=== PATIENT | female | born 1960 | race Caucasian/White ===

== ENCOUNTER 2017-04-22 15:40 | Emergency (ER) | payer BC ==
[2017-04-22] MEDS ORDERED: Ketorolac 30 MG/ML SDV IVPUSH ONE (15:57)
[2017-04-22 16:04] VITALS: BP 108/73
[2017-04-22 16:51] LABS: CHLORIDE,CL 109 mmol/L (98-107); SODIUM,NA 149 mmol/L (136-145)
--- NOTE | 2017-04-23 08:02 | ER ---
Date of Service: 04/22/2017 SUBJECTIVE: Nay presents to the emergency room with complaints of low back pain. The patient has a long-standing history of low back pain. Apparently, her cousin came to visit her and was concerned that the amount of discomfort the patient was experiencing and subsequently called 911. EMS did transport the patient here to the ER. They did give her 1 mg of Dilaudid IV for her discomfort. The patient states that she has not been consuming alcohol but does smell strongly of alcohol on arrival to the ER. She states that she has not experienced any recent trauma and states that she has chronic back pain. PAST MEDICAL HISTORY: 1. Hypothyroidism. 2. Alcoholism, the patient states she is in remission; however, she does appear to be acutely intoxicated. 3. Dyslipidemia. 4. Chronic low back pain. MEDICATIONS: 1. Levothyroxine 125 mcg daily. 2. Klonopin 2 mg p.o. t.i.d. p.r.n. 3. Lipitor 80 mg p.o. daily. 4. Multivitamin 1 daily. ALLERGIES: Prozac. REVIEW OF SYSTEMS: Denies any fever, chills, saddle anesthesia, numbness or tingling in her extremities or urinary or fecal incontinence or retention. PHYSICAL EXAMINATION: General: This is a 56-year-old female patient, in no acute distress. Vital Signs: Blood pressure is 108/73, heart rate is 87, temperature is 37.1, and respiratory rate 16. Skin: Warm, pink, and dry. HEENT. Head is normocephalic and atraumatic. Lungs: Clear to auscultation. Heart: Regular rate and rhythm. Abdomen: Soft, nontender. There is no hepatosplenomegaly or masses noted. Back: She does have some severe point tenderness and increased discomfort with manipulation of the lumbar spine. No obvious step-offs or deformity noted. Neurovascular: Circulation, sensation, and motor function all within normal limits in the distal portion of her lower extremities. LABORATORY DATA: WBCs 8.7, hemoglobin is 15.0, and platelets are 276. Chemistry sodium is 149, potassium is 3.5, chloride is 109, bicarb is 31, BUN is 11, and creatinine 0.7. Creatinine clearance is 85.7. GFR is greater than 60. Glucose is 95, calcium is 8.6, corrected calcium is 8.84. Total bilirubin is 0.4, AST is 20, ALT is 26, and alkaline phosphatase is 99. CRP is 0.4. Blood alcohol elevated at 345. Lumbar spine series was obtained. There was no evidence of any obvious step-offs or deformity. There is no evidence of any acute pathology. EMERGENCY ROOM COURSE: The patient was given Toradol 30 mg IV, did report minimal improvement in her discomfort. She remained stable in my care in the emergency room. ASSESSMENT: Acute on chronic low back pain. PLAN: The patient will be discharged. They did not give her any opiate pain medication as she is highly intoxicated. She is going to go home with her cousin at this time. I advised her to follow up in the clinic for recheck in the next 7 to 10 days. It looks as though she has not had an MRI and has not participated in physical therapy for some time. All questions were answered. MWK: 04/23/2017 04:57:35 MODL: 04/23/2017 05:41:48 /[id number]
== END 2017-04-22 17:20 | disposition home or self-care (01) ==
LOC: VM.ED 15:40
DX: M54.5 Low back pain (principal); G89.29 Other chronic pain; E03.9 Hypothyroidism, unspecified; E78.5 Hyperlipidemia, unspecified; Z79.899 Other long term (current) drug therapy; Z88.8 Allergy status to other drugs, medicaments and biological substances
CPT/HCPCS: 36415; 72100; 80053; 85025; 86140; 96374; 99284; G0480; J1885

== ENCOUNTER 2019-01-20 06:13 | Day surgery (SDC) | payer BC ==
[2019-01-20] MEDS: Lactated Ringers 1,000 ML IV SCH (06:31)
[2019-01-20] MEDS ORDERED: Propofol 200 MG/20 ML SDV ONE (07:50)
[2019-01-20] MEDS ORDERED: Midazolam 1 MG/ML 2 ML SDV ONE (07:50)
[2019-01-20 08:44] VITALS: BP 112/78
--- NOTE | 2019-01-20 09:25 | OR ---
PREOPERATIVE DIAGNOSES: 1. Family history of colon cancer - parent. 2. Chronic diarrhea with history of collagenous colitis. POSTOPERATIVE DIAGNOSIS: Normal colonoscopic exam. PROCEDURE PROPOSED: Total flexible colonoscopy with multiple random biopsies. PROCEDURE DONE: Total flexible colonoscopy with multiple random biopsies. INDICATION: This is a 58-year-old female, who comes in for a 5-year colonic surveillance due to family history of colon cancer. She also has a history of collagenous colitis with some chronic diarrhea. It is felt that we likely would do some further followup random biopsies. TECHNIQUE: The patient was brought to the endoscopy suite, placed in left lateral decubitus position. She was sedated per LIVESTOCK RANCH HAND with propofol. The flexible video colonoscope was then passed transanally and under visualization advanced to the cecum. Examination revealed normal ascending, transverse, descending, sigmoid, and rectal colon. There was no evidence of any colitis, diverticulosis, polyps, or any other abnormality. Multiple random biopsies were taken throughout the left colon and submitted for pathologic examination totaling about 8 biopsies. She tolerated the procedure well, as the scope was then withdrawn. FINAL IMPRESSION: 1. Normal colonoscopic exam. 2. Family history of colon cancer. 3. History of collagenous colitis with chronic diarrhea. PLAN: The patient is reassured and I felt that she should continue with colonic surveillance every 5 years hereafter and I will be sending her a letter with the pathology report on the random biopsies. SCM: 01/20/2019 08:22:35 MODL: 01/20/2019 09:21:18 /[id number]
== END 2019-01-20 09:36 | disposition home or self-care (01) ==
LOC: VM.SDS 06:13
PROVIDERS: ATTEND Surgery
DX: K52.831 Collagenous colitis (principal); Z80.0 Family history of malignant neoplasm of digestive organs; K21.9 Gastro-esophageal reflux disease without esophagitis; E03.9 Hypothyroidism, unspecified; E78.5 Hyperlipidemia, unspecified; F10.11 Alcohol abuse, in remission; F41.9 Anxiety disorder, unspecified; F32.9 Major depressive disorder, single episode, unspecified; M85.80 Other specified disorders of bone density and structure, unspecified site; M25.512 Pain in left shoulder; M25.511 Pain in right shoulder; G89.29 Other chronic pain; Z79.899 Other long term (current) drug therapy; Z88.8 Allergy status to other drugs, medicaments and biological substances
CPT/HCPCS: J2250; J2704; J7120

== ENCOUNTER 2019-05-10 13:54 | Emergency (ER) | payer BC ==
[2019-05-10] MEDS ORDERED: Lactated Ringers 1,000 ML IV ONE (14:05)
[2019-05-10] MEDS ORDERED: Ketorolac 15 MG/ML SDV IVPUSH ONE (14:05)
[2019-05-10 14:26] VITALS: BP 139/83
--- NOTE | 2019-05-10 14:43 | EDM.PDOC ---
ED HPI GENERAL MEDICAL PROBLEM - General Chief Complaint: Back Pain or Injury Stated Complaint: low back pain Time Seen by Provider: 05/10/19 14:04 Source of Information: Reports: Patient, EMS History Limitations: Reports: No Limitations - History of Present Illness INITIAL COMMENTS - FREE TEXT/NARRATIVE: Patient arrives via EMS with complaints of lower left back pain radiating down her left leg to her toes. She states she was doing yardwork and fell yesterday. 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 Was given 100 mg of fentanyl while transported over from his domicile to the ED. Treatments INSTRUCTOR PAINTING: Reports: Other (see below) Other Treatments INSTRUCTOR PAINTING: Fentanyl 100mcg Left Lower Back Pain Score (Numeric/FACES): 10 - Related Data Allergies Allergy/AdvReac Type Severity Reaction Status Date / Time fluoxetine HCl [From Prozac] Allergy Swelling Verified 05/10/19 14:19 Home Meds: Home Meds ClonazePAM [KlonoPIN] 1 mg PO TID PRN 12/25/13 [History] Levothyroxine 125 mcg PO DAILY 12/25/13 [History] Multivitamin [Multivitamins] 1 each PO DAILY 01/30/14 [History] Aspirin 81 mg PO DAILY 08/20/18 [History] Calcium Carbonate/Vitamin D3 [Calcium 500 mg-Vit D3 600 Unit] 1 each PO DAILY [History] Cholestyramine (With Sugar) [Questran Powder] 4 gm PO QID 08/20/18 [History] Mirtazapine 1 tab PO BEDTIME 08/20/18 [History] QUEtiapine [SEROquel] 25 mg PO BID PRN 08/20/18 [History] QUEtiapine [SEROquel] 50 mg PO BEDTIME 08/20/18 [History] Escitalopram [Lexapro] 20 mg PO DAILY 01/17/19 [History] Mirtazapine 1 tab PO DAILY 01/17/19 [History] Past Medical History Cardiovascular History: Reports: High Cholesterol Gastrointestinal History: Reports: Chronic Diarrhea, GERD, Inflammatory Bowel Disease 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 Restless leg SX Psychiatric History: Reports: Addiction, Anxiety, Depression, Panic Attack Other Psychiatric History: Tobacco use. HX alcohol abuse Endocrine/Metabolic History: Reports: Hypothyroidism Oncologic (Cancer) History: Reports: Breast Other Oncologic History: Family HX colon CA - Past Surgical History Other HEENT Surgeries/Procedures: septoplasty GI Surgical History: Reports: Colonoscopy Female Surgical History: Reports: Section Musculoskeletal Surgical History: Reports: Hip Replacement, Knee Replacement, Shoulder Surgery Other Musculoskeletal Surgeries/Procedures:: bilat. wrist surgery Oncologic Surgical History: Reports: Lumpectomy ED ROS GENERAL - Review of Systems Review Of Systems: See Below Constitutional: Reports: No Symptoms HEENT: Reports: No Symptoms Respiratory: Reports: No Symptoms Cardiovascular: Reports: No Symptoms Endocrine: Reports: No Symptoms GI/Abdominal: Reports: No Symptoms : Reports: No Symptoms Musculoskeletal: Reports: Back Pain, Leg Pain Skin: Reports: No Symptoms Neurological: Reports: No Symptoms Psychiatric: Reports: No Symptoms Hematologic/Lymphatic: Reports: No Symptoms Immunologic: Reports: No Symptoms ED EXAM,LOWER BACK PAIN/INJURY - Physical Exam Exam: See Below Exam Limited By: No Limitations General Appearance: Alert, WD/WN, Mild Distress Eye Exam: Bilateral Eye: EOMI, Normal Inspection, PERRL Ears: Normal TMs Nose: Normal Inspection, Normal Mucosa, No Blood Throat/Mouth: Normal Inspection, Normal Lips, Normal Teeth, Normal Gums, Normal Oropharynx, Normal Voice, No Airway Compromise Head: Atraumatic, Normocephalic Neck: Normal Inspection, Supple, Non-Tender, Full Range of Motion Respiratory/Chest: No Respiratory Distress, Lungs Clear, Normal Breath Sounds, No Accessory Muscle Use, Chest Non-Tender Cardiovascular: Normal Peripheral Pulses, Regular Rate, Rhythm, No Edema, No Gallop, No JVD, No Murmur, No Rub GI/Abdominal: Normal Bowel Sounds, Soft, Non-Tender, No Organomegaly, No Distention, No Abnormal Bruit, No Mass Back Exam: Normal Inspection, Full Range of Motion, NT Extremities: Normal Inspection, Normal Range of Motion, Non-Tender, No Pedal Edema, Normal Capillary Refill Neurological: Alert, Normal Mood/Affect, Normal Dorsiflexion, CN II-XII Intact, Normal Plantar Flexion, Normal Gait, Normal Reflexes, No Motor/Sensory Deficits , Oriented x 3 Psychiatric: Normal Affect, Normal Mood Skin Exam: Warm, Dry, Intact, Normal Color, No Rash Lymphatic: No Adenopathy Course - Vital Signs Last Recorded V/S: Last Vital Signs Temp 35.9 C 05/10/19 13:55 Pulse 103 H 05/10/19 13:55 Resp 16 05/10/19 13:55 BP 139/83 05/10/19 13:55 Pulse Ox 95 05/10/19 13:55 - Orders/Labs/Meds Orders: Active Orders 24 hr Category Date Time Status Pelvis Min 3V [CR] Stat Exams 05/10/19 14:04 Ordered CBC WITH AUTO DIFF [HEME] Stat Lab 05/10/19 14:08 Ordered CMP [COMPREHENSIVE METABOLIC PN,CMP] [CHEM] Stat Lab 05/10/19 14:08 Ordered ETHANOL BLOOD MEDICAL [CHEM] Stat Lab 05/10/19 14:04 Ordered Lactated Ringers [Ringers, Lactated] 1,000 ml Med 05/10/19 14:05 Ordered IV ONETIME Medication Orders Lactated Ringer's (Ringers, Lactated) 1,000 mls @ 999 mls/hr IV ONETIME ONE Stop: 05/10/19 15:05 Meds: Medications Generic Name Dose Route Start Last Admin Trade Name Freq PRN Reason Stop Dose Admin Lactated Ringer's 1,000 mls @ 999 mls/hr 05/10/19 14:05 Ringers, Lactated IV 05/10/19 15:05 ONETIME ONE Discontinued Medications Generic Name Dose Route Start Last Admin Trade Name Freq PRN Reason Stop Dose Admin Ketorolac Tromethamine 15 mg 05/10/19 14:05 Toradol IVPUSH 05/10/19 14:06 ONETIME ONE - Radiology Interpretation Free Text/Narrative:: Negative for acute process of the hip/pelvis Departure - Departure Time of Disposition: 15:39 Disposition: Home, Self-Care 01 Condition: Fair Clinical Impression: Acute back pain - Discharge Information *PRESCRIPTION DRUG MONITORING PROGRAM REVIEWED*: Not Applicable *COPY OF PRESCRIPTION DRUG MONITORING REPORT IN PATIENT DEREK: Not Applicable Instructions: Acute Back Pain, Adult Forms: ED Department Discharge Additional Instructions: Plan Follow up with primary care for management of your chronic back pain No acute fractures of the pelvis or hip on x-ray today Stay well hydrated Alternate heat with ice, take a warm bath as needed. May also use tylenol and ibuprofen for pain relief - Problem List & Annotations (1) Acute exacerbation of chronic low back pain SNOMED Code(s): 001007478 Code(s): M54.5 - LOW BACK PAIN; G89.29 - OTHER CHRONIC PAIN Status: Acute Priority: Medium Current Visit: No - Problem List Review Problem List Initiated/Reviewed/Updated: Yes - My Orders Last 24 Hours: My Active Orders 05/10/19 14:04 Pelvis Min 3V [CR] Stat ETHANOL BLOOD MEDICAL [CHEM] Stat 05/10/19 14:05 Lactated Ringers [Ringers, Lactated] 1,000 ml IV ONETIME 05/10/19 14:08 CBC WITH AUTO DIFF [HEME] Stat CMP [COMPREHENSIVE METABOLIC PN,CMP] [CHEM] Stat - Assessment/Plan Last 24 Hours: My Active Orders 05/10/19 14:04 Pelvis Min 3V [CR] Stat ETHANOL BLOOD MEDICAL [CHEM] Stat 05/10/19 14:05 Lactated Ringers [Ringers, Lactated] 1,000 ml IV ONETIME 05/10/19 14:08 CBC WITH AUTO DIFF [HEME] Stat CMP [COMPREHENSIVE METABOLIC PN,CMP] [CHEM] Stat Assessment:: Acute exacerbation of chronic back pain Plan: Plan Follow up with primary care for management of your chronic back pain No acute fractures of the pelvis or hip on x-ray today Stay well hydrated Alternate heat with ice, take a warm bath as needed. May also use tylenol and ibuprofen for pain relief
--- NOTE | 2019-05-10 14:47 | CR ---
[id number] RAD/RAD Pelvis 3V Min EXAM: 2 VIEWS PELVIS INDICATION: FALL. COMPARISON: None. DISCUSSION: No fracture, dislocation or other acute osseous abnormality. Postsurgical changes following total left hip arthroplasty. IMPRESSION: 1. No acute osseous abnormalities. Ryan Sorenson DO 05/10/19 [id number] Thank you for allowing us to participate in the care of your patient.
[2019-05-10 15:18] LABS: ANION GAP 13.7 mmol/L (10-20); CHLORIDE,CL 111 mmol/L (98-107); SODIUM,NA 147 mmol/L (136-145)
== END 2019-05-10 15:43 | disposition home or self-care (01) ==
LOC: VM.ED 13:54
DX: M54.5 Low back pain (principal); G89.29 Other chronic pain; F41.9 Anxiety disorder, unspecified; F32.9 Major depressive disorder, single episode, unspecified; E03.9 Hypothyroidism, unspecified; Z79.899 Other long term (current) drug therapy; Z88.8 Allergy status to other drugs, medicaments and biological substances; Z79.82 Long term (current) use of aspirin; W19.XXXA Unspecified fall, initial encounter
CPT/HCPCS: 36415; 72190; 80053; 85025; 96361; 96374; 99284-25; G0480; J1885; J7120

== ENCOUNTER 2019-10-28 07:45 | Emergency (ER) | payer BC ==
--- NOTE | 2019-10-28 08:04 | EDM.PDOC ---
ED HPI GENERAL MEDICAL PROBLEM - General Chief Complaint: Chest Pain Stated Complaint: CP Time Seen by Provider: 10/28/19 07:50 Source of Information: Reports: Patient, EMS History Limitations: Reports: No Limitations - History of Present Illness INITIAL COMMENTS - FREE TEXT/NARRATIVE: Patient states that she started having chest pain at 2 AM while working today at the [facility] [employer] [employer] felt like indigestion type pain midsternal nonradiating no shortness of breath but had nausea and vomited a couple times patient states she finished working her shift and called EMS at 720 this morning upon arrival EMS had a palpation blood pressure of 90 the patient was alert and oriented walk to the cot blood pressure 137/57 in route. Patient states that the chest pain was 8 out of 10 all night and constant she said it was partially alleviated with 4 baby aspirin by EMS it went down to maybe 2 out of 3 but completely resolved upon arrival to the ER she states she has had no pain now. Again she denies any shortness of breath but felt nauseated and flushed positive vomiting no pain radiation She states she has never been seen by heart doctor and has no cardiac problems that she knows of no family risk factors for coronary artery disease Onset: Sudden Duration: Hour(s): Quality: Reports: Burning Severity: Severe Improves with: Reports: Other (Aspirin) Associated Symptoms: Reports: Chest Pain, Nausea/Vomiting. 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 - Related Data Allergies Allergy/AdvReac Type Severity Reaction Status Date / Time fluoxetine HCl [From Prozac] Allergy Swelling Verified 10/28/19 08:15 Home Meds: Home Meds QUEtiapine [SEROquel] 25 mg PO BID PRN 08/20/18 [History] QUEtiapine [SEROquel] 50 mg PO BEDTIME 08/20/18 [History] Mirtazapine 1 tab PO BEDTIME 01/17/19 [History] ALPRAZolam [Alprazolam] 0.25 mg PO TID PRN 08/15/19 [History] Gabapentin [Neurontin] 1,200 mg PO TID 30 Days #180 tab 10/06/19 [Rx] Levothyroxine 112 mcg PO ACBREAKFAST 10/15/19 [History] Past Medical History Cardiovascular History: Reports: High Cholesterol Gastrointestinal History: Reports: Chronic Diarrhea, GERD, Inflammatory Bowel Disease 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 Restless leg SX Psychiatric History: Reports: Addiction, Anxiety, Depression, Panic Attack Other Psychiatric History: Tobacco use. HX alcohol abuse Endocrine/Metabolic History: Reports: Hypothyroidism Oncologic (Cancer) History: Reports: Breast Other Oncologic History: Family HX colon CA - Past Surgical History Other HEENT Surgeries/Procedures: septoplasty GI Surgical History: Reports: Colonoscopy Female Surgical History: Reports: Section Musculoskeletal Surgical History: Reports: Hip Replacement, Knee Replacement, Shoulder Surgery Other Musculoskeletal Surgeries/Procedures:: bilat. wrist surgery Oncologic Surgical History: Reports: Lumpectomy Social & Family History - Caffeine Use Caffeine Use: Reports: Soda ED ROS GENERAL - Review of Systems Review Of Systems: See Below Constitutional: Reports: No Symptoms, Diaphoresis. Denies: Fever, Chills, Malaise, Weakness, Fatigue, Night Sweats HEENT: Reports: No Symptoms Respiratory: Reports: No Symptoms. Denies: Shortness of Breath, Wheezing, Cough , Sputum Cardiovascular: Reports: Chest Pain. Denies: Blood Pressure Problem, Claudication, Dyspnea on Exertion, Edema, Lightheadedness, Orthopnea, Palpitations, PND, Syncope Endocrine: Reports: No Symptoms GI/Abdominal: Reports: No Symptoms : Reports: No Symptoms Musculoskeletal: Reports: No Symptoms Skin: Reports: No Symptoms Neurological: Reports: No Symptoms Psychiatric: Reports: No Symptoms Hematologic/Lymphatic: Reports: No Symptoms Immunologic: Reports: No Symptoms ED EXAM, GENERAL - Physical Exam Exam: See Below Exam Limited By: No Limitations General Appearance: Alert, WD/WN, No Apparent Distress, Other (Patient sitting comfortably on the stretcher upon arrival to the ER no acute distress noted smiling friendly answers all questions appropriately) Eye Exam: Bilateral Eye: EOMI, PERRL Nose: Normal Inspection, Normal Mucosa, No Blood Throat/Mouth: Normal Inspection, Normal Lips, Normal Teeth, Normal Gums, Normal Oropharynx, Normal Voice, No Airway Compromise Head: Atraumatic, Normocephalic Neck: Normal Inspection, Supple, Non-Tender, Full Range of Motion Respiratory/Chest: No Respiratory Distress, Lungs Clear, Normal Breath Sounds, No Accessory Muscle Use, Chest Non-Tender Cardiovascular: Normal Peripheral Pulses, Regular Rate, Rhythm, No Edema, No Gallop, No JVD, No Murmur, No Rub GI/Abdominal: Normal Bowel Sounds, Soft, Non-Tender, No Organomegaly, No Distention Back Exam: Normal Inspection, Full Range of Motion Extremities: Normal Inspection, Normal Range of Motion, Non-Tender, No Pedal Edema Neurological: Alert, Oriented, CN II-XII Intact, Normal Cognition Psychiatric: Normal Affect, Normal Mood Skin Exam: Warm, Dry, Intact, Normal Color, No Rash Course - Vital Signs Text/Narrative:: CBC BMP troponin chest x-ray EKG Potassium 2.9 patient was given 40 mg p.o. with 400 Mag-Ox troponin was negative will draw a second troponin Second troponin was negative patient recheck states she feels better no pain whatsoever she was given 40 mg p.o. potassium to take later this afternoon she is to follow-up in clinic with her primary care provider in the morning for recheck Last Recorded V/S: Last Vital Signs Temp 36.2 C 10/28/19 07:45 Pulse 88 10/28/19 07:45 Resp 18 10/28/19 07:45 BP 115/75 10/28/19 10:54 Pulse Ox 96 10/28/19 07:45 - Orders/Labs/Meds Orders: Active Orders 24 hr Category Date Time Status Potassium Chloride [Potassium Chloride Solution] Med 10/28/19 08:45 Active 40 meq PO DAILY Medication Orders Potassium Chloride (Potassium Chloride Solution) 40 meq PO DAILY REAGAN Last Admin: 10/28/19 08:54 Dose: 40 meq Labs: Laboratory Tests 10/28/19 10/28/19 10/28/19 Range/Units 08:07 08:07 10:45 WBC 14.5 H (4.0-10.0) x10^3/uL RBC 4.52 (4.00-5.50) x10^6/uL Hgb 15.8 (12.0-16.0) g/dL Hct 43.2 (33.0-47.0) % MCV 95.6 H (78.0-93.0) fL MCH 35.0 H (26.0-32.0) pg MCHC 36.6 H (32.0-36.0) g/dL RDW Coeff of Delfino 12.6 (10.0-15.0) % Plt Count 260 (130-400) x10^3/uL Neut % (Auto) 88.9 H (50.0-80.0) % Lymph % (Auto) 6.0 L (25.0-50.0) % [place] % (Auto) 4.9 (2.0-11.0) % Eos % (Auto) 0.1 (0.0-4.0) % Baso % (Auto) 0.1 L (0.2-1.2) % Sodium 131 L (136-145) mmol/L Potassium 2.9 L* (3.5-5.1) mmol/L Chloride 88 L (98-107) mmol/L Carbon Dioxide 31 (21-32) mmol/L Anion Gap 14.9 (10-20) mmol/L BUN 27 H (7-18) mg/dL Creatinine 1.6 H (0.55-1.02) mg/dL Est Cr Clr Drug Dosing TNP Estimated GFR (MDRD) 33 Glucose 117 H (74-106) mg/dL Calcium 10.0 (8.5-10.1) mg/dL Troponin I < 0.017 < 0.017 (<=0.056) ng/mL Meds: Medications Generic Name Dose Route Start Last Admin Trade Name Freq PRN Reason Stop Dose Admin Potassium Chloride 40 meq 10/28/19 08:45 10/28/19 08:54 Potassium Chloride Solution PO 40 meq DAILY REAGAN Administration Discontinued Medications Generic Name Dose Route Start Last Admin Trade Name Freq PRN Reason Stop Dose Admin Magnesium Oxide 400 mg 10/28/19 08:45 10/28/19 08:54 Magnesium Oxide PO 10/28/19 08:46 400 mg ONETIME ONE Administration Departure - Departure Time of Disposition: 11:30 Disposition: Home, Self-Care 01 Condition: Good Clinical Impression: Chest pain, Hypokalemia Referrals: Olivia Butler DO [Primary Care Provider] - Forms: ED Department Discharge Sepsis Event Note - Focused Exam Vital Signs: Vital Signs Temp Pulse Resp BP Pulse Ox 10/28/19 10:54 115/75 10/28/19 07:45 36.2 C 88 18 125/86 96 Date Exam was Performed: 10/28/19 Time Exam was Performed: 11:34 - Problem List & Annotations (1) Chest pain SNOMED Code(s): 47372446 Code(s): R07.9 - CHEST PAIN, UNSPECIFIED Status: Acute Current Visit: Yes (2) Hypokalemia SNOMED Code(s): 59150542 Code(s): E87.6 - HYPOKALEMIA Status: Acute Current Visit: Yes - My Orders Last 24 Hours: My Active Orders 10/28/19 08:45 Potassium Chloride [Potassium Chloride Solution] 40 meq PO DAILY - Assessment/Plan Last 24 Hours: My Active Orders 10/28/19 08:45 Potassium Chloride [Potassium Chloride Solution] 40 meq PO DAILY
[2019-10-28 08:13] VITALS: PULSE 88
--- NOTE | 2019-10-28 08:36 | CR ---
[id number] RAD/RAD Chest PA or AP 1V EXAM: RAD Chest PA or AP 1V INDICATION: CHEST PAIN COMPARISON: None. DISCUSSION: Cardiomediastinal silhouette is normal in size and contour. No infiltrate, effusion, pneumothorax, or edema. Postsurgical change projects over the right axilla. IMPRESSION: No acute findings. Feliberto Gore MD 10/28/19 0835 Thank you for allowing us to participate in the care of your patient.
[2019-10-28 08:37] LABS: CHLORIDE,CL 88 mmol/L (98-107); SODIUM,NA 131 mmol/L (136-145)
[2019-10-28 08:38] LABS: ANION GAP 14.9 mmol/L (10-20)
[2019-10-28] MEDS: Potassium Chloride 10% 20 MEQ/15 ML Soln 15 ML UD Cup PO SCH (08:54)
[2019-10-28] MEDS: Magnesium Oxide 400 MG Tab PO ONE (08:54)
[2019-10-28 10:55] VITALS: BP 115/75
[2019-10-28] MEDS: Potassium Chloride 20 MEQ Tab.ER PO ONE (11:51)
== END 2019-10-28 11:53 | disposition home or self-care (01) ==
LOC: VM.ED 07:45
DX: R07.9 Chest pain, unspecified (principal); E87.6 Hypokalemia; G25.81 Restless legs syndrome; F41.9 Anxiety disorder, unspecified; F32.9 Major depressive disorder, single episode, unspecified; E03.9 Hypothyroidism, unspecified; Z88.8 Allergy status to other drugs, medicaments and biological substances; Z79.899 Other long term (current) drug therapy; Z79.890 Hormone replacement therapy
CPT/HCPCS: 36415; 71045; 80048; 84484; 85025; 99285-25; A9270-GY

== ENCOUNTER 2020-12-09 07:07 | Emergency (ER) | payer BC ==
[2020-12-09] MEDS: Morphine 2 MG/ML SYRINGE IVPUSH ONE (07:24)
[2020-12-09] MEDS: Ondansetron 4 MG/2 ML SDV IVPUSH ONE (07:24)
[2020-12-09] MEDS ORDERED: Sodium Chloride 0.9% 10 ML Syringe FLUSH PRN (07:34)
--- NOTE | 2020-12-09 07:38 | EDM.PDOC ---
ED HPI GENERAL MEDICAL PROBLEM - General Chief Complaint: Lower Extremity Injury/Pain Time Seen by Provider: 12/09/20 07:30 Source of Information: Reports: Patient, EMS - History of Present Illness INITIAL COMMENTS - FREE TEXT/NARRATIVE: Nay is a 60 y/o female who is brought to the ER by EMS after she fell. SHe apparently was outside in the shop and she reports that her right hip "gave out". She was unable to get up or even crawl to the house to call for help. She laid outside through the night until she could crawl to the phone for help. She was given Fentanyl 100mcg IVP by EMS, but she is in alot of pain. She had a rig ht hip surgery about a month ago. Right Hip Pain Score (Numeric/FACES): 10 - Related Data Allergies Allergy/AdvReac Type Severity Reaction Status Date / Time fluoxetine HCl [From Prozac] Allergy Swelling Verified 12/09/20 07:30 Home Meds: Home Meds QUEtiapine [SEROquel] 25 mg PO BID PRN 08/20/18 [History] QUEtiapine [SEROquel] 50 mg PO BEDTIME 08/20/18 [History] Mirtazapine 1 tab PO BEDTIME 01/17/19 [History] ALPRAZolam [Alprazolam] 0.25 mg PO TID PRN 08/15/19 [History] DULoxetine HCl [Duloxetine HCl] 60 mg PO BEDTIME 30 Days #30 capsule. 12/01/19 [Rx] DULoxetine [Cymbalta] 30 mg PO DAILY 12/09/20 [History] Gabapentin [Neurontin] 600 mg PO TID 12/09/20 [History] Hydrocodone/Acetaminophen [Hydrocodone-Acetamin 5-325 mg] 1 each PO DAILY 12/09/20 [History] Levothyroxine 150 mcg PO ACBREAKFAST 12/09/20 [History] Potassium Chloride 20 meq PO DAILY 12/09/20 [History] atorvaSTATin [Lipitor] 20 mg PO DAILY 12/09/20 [History] Past Medical History Cardiovascular History: Reports: High Cholesterol, Other (See Below) Other Cardiovascular History: REcent hypokalemia and in ER Gastrointestinal History: Reports: Chronic Diarrhea, GERD, Inflammatory Bowel Disease 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 Restless leg SX Psychiatric History: Reports: Addiction, Anxiety, Depression, Panic Attack Other Psychiatric History: Tobacco use. HX alcohol abuse Endocrine/Metabolic History: Reports: Hypothyroidism Oncologic (Cancer) History: Reports: Breast Other Oncologic History: Family HX colon CA - Past Surgical History Other HEENT Surgeries/Procedures: septoplasty GI Surgical History: Reports: Colonoscopy Female Surgical History: Reports: Section Musculoskeletal Surgical History: Reports: Hip Replacement, Knee Replacement, Shoulder Surgery Other Musculoskeletal Surgeries/Procedures:: bilat. wrist surgery Oncologic Surgical History: Reports: Lumpectomy Social & Family History - Caffeine Use Caffeine Use: Reports: Soda Review of Systems - Review of Systems Review Of Systems: See Below Constitutional: Reports: No Symptoms Eyes: Reports: No Symptoms Ears: Reports: No Symptoms Nose: Reports: No Symptoms Mouth/Throat: Reports: No Symptoms Respiratory: Reports: No Symptoms Cardiovascular: Reports: No Symptoms GI/Abdominal: Reports: No Symptoms Genitourinary: Reports: No Symptoms Musculoskeletal: Reports: No Symptoms, Joint Pain (Right Hip) Skin: Reports: No Symptoms Neurological: Reports: No Symptoms Psychiatric: Reports: No Symptoms ED EXAM, GENERAL - Physical Exam Exam: See Below General Appearance: Alert, WD/WN, Moderate Distress (Adult female, obviously in pain) Ears: Hearing Grossly Normal Nose: Normal Inspection Throat/Mouth: Normal Voice Head: Atraumatic, Normocephalic Neck: Normal Inspection Respiratory/Chest: No Respiratory Distress, Lungs Clear Cardiovascular: Normal Peripheral Pulses, Regular Rate, Rhythm GI/Abdominal: Normal Bowel Sounds, Soft (Female) Exam: Deferred Rectal (Female) Exam: Deferred Back Exam: Normal Inspection Extremities: Other (Note redness and early brusing to right elbow; right hip deformity noted and tender to touch, some midl brusing; note brusing and abrasion to left knee; ROM not tested due to pain) Neurological: Alert, Oriented, CN II-XII Intact Skin Exam: Warm, Intact, Normal Color Course - Vital Signs Text/Narrative:: 0730 The patient was seen by the COACH WIRER. She was given Morphine 2mg IVP and Zofran 4mg IVP and Xrays ordered prior to COACH WIRER assessment. Dilaudid 2mg IVP then ordered and a liter of NS. CBC, EKG and further imaging ordered. 0810 XR Right-note dislocated prothesis. [address] Amezquita at [facility] since he was the Orthopedic Surgeon that had done the Right Hip Replacement on 10-19-2020. 0830 Dr Johnson from [facility] called to [facility] and accepted patient for transfer to [facility]. Dilaudid 2mg IVP ordered for pain. Note NI=110; Lactic Acid=6.9, probable Rhabdomyolysis with extended time down from fall, will continue IV fluids at this time. Plan ALS transfer to [facility]. 0847 Remaining labs reviewed. Note IIWW=298, Trop I=65, Lipase=45, Amylase=40, CMP Automated Process Operator=1.1. Shaffer placed for transport and IV fluids continued. Patient remained stable until departing the ER with [facility] for [facility]. Last Recorded V/S: Last Vital Signs Temp 36.3 C 12/09/20 07:10 Pulse 105 H 12/09/20 07:10 Resp 16 12/09/20 07:10 BP 130/78 12/09/20 07:10 Pulse Ox 95 12/09/20 07:10 - Orders/Labs/Meds Orders: Active Orders 24 hr Category Date Time Status EKG Documentation Completion [RC] STAT Care 12/09/20 07:34 Active Insert Shaffer Catheter [Insert Urinary Catheter] [OM.PC] Care 12/09/20 07:45 Ordered Q24H Urinary Catheter Assessment [RC] ASDIRECTED Care 12/09/20 07:35 Active Hip Min 2V or 3V Rt [CR] Stat Exams 12/09/20 07:19 Ordered UA RFX CHRISTI AND CULT IF INDIC [URIN] Stat Lab 12/09/20 07:34 Ordered URINE DRUG SCREEN,POC [POC] Stat Lab 12/09/20 07:34 Ordered Sodium Chloride 0.9% [Saline Flush] Med 12/09/20 07:34 Active 10 ml FLUSH ASDIRECTED PRN Saline Lock Insert [OM.PC] Stat Oth 12/09/20 07:34 Ordered Medication Orders Sodium Chloride (Sodium Chloride 0.9% 10 Ml Syringe) 10 ml FLUSH ASDIRECTED PRN PRN Reason: Keep Vein Open Labs: Laboratory Tests 12/09/20 12/09/20 12/09/20 Range/Units 07:51 07:51 07:51 WBC 21.8 H* (4.0-10.0) x10^3/uL RBC 3.84 L (4.00-5.50) x10^6/uL Hgb 12.7 D (12.0-16.0) g/dL Hct 37.5 (33.0-47.0) % MCV 97.7 H (78.0-93.0) fL MCH 33.1 H (26.0-32.0) pg MCHC 33.9 (32.0-36.0) g/dL RDW Coeff of Delfino 14.3 (10.0-15.0) % Plt Count 330 (130-400) x10^3/uL Add Manual Diff Yes Neutrophils % (Manual) 92 H (50-80) % Lymphocytes % (Manual) 3 L (25-50) % Monocytes % (Manual) 5 (2-11) % Platelet Estimate Adequate PT 10.3 (9.9-12.5) SEC INR 0.9 L (2.0-3.5) APTT 21.4 L (25.6-32.8) SEC Sodium 139 (136-145) mmol/L Potassium 4.5 (3.5-5.1) mmol/L Chloride 102 (98-107) mmol/L Carbon Dioxide 20 L D (21-32) mmol/L Anion Gap 21.5 H (5-15) mmol/L BUN 18 (7-18) mg/dL Creatinine 1.1 H (0.55-1.02) mg/dL Est Cr Clr Drug Dosing 58.08 mL/min Estimated GFR (MDRD) 50 Glucose 104 (74-106) mg/dL Lactic Acid (0.4-2.0) mmol/L Calcium 8.3 L D (8.5-10.1) mg/dL Corrected Calcium 8.86 (8.5-10.1) mg/dL Magnesium 1.8 (1.8-2.4) mg/dL Total Bilirubin 0.3 (0.2-1.0) mg/dL AST 28 (15-37) U/L ALT 24 (14-59) U/L Alkaline Phosphatase 110 (46-116) U/L Creatine Kinase 600 H* (26-192) U/L Troponin I High Sens 10 (<=51) ng/L Total Protein 6.8 (6.4-8.2) g/dL Albumin 3.3 L (3.4-5.0) g/dL Globulin 3.5 Albumin/Globulin Ratio 0.94 Amylase 40 (25-115) U/L Lipase 65 L (73-393) U/L Ethyl Alcohol 149 H (0-3) mg/dL 12/09/20 Range/Units 07:51 WBC (4.0-10.0) x10^3/uL RBC (4.00-5.50) x10^6/uL Hgb (12.0-16.0) g/dL Hct (33.0-47.0) % MCV (78.0-93.0) fL MCH (26.0-32.0) pg MCHC (32.0-36.0) g/dL RDW Coeff of Delfino (10.0-15.0) % Plt Count (130-400) x10^3/uL Add Manual Diff Neutrophils % (Manual) (50-80) % Lymphocytes % (Manual) (25-50) % Monocytes % (Manual) (2-11) % Platelet Estimate PT (9.9-12.5) SEC INR (2.0-3.5) APTT (25.6-32.8) SEC Sodium (136-145) mmol/L Potassium (3.5-5.1) mmol/L Chloride (98-107) mmol/L Carbon Dioxide (21-32) mmol/L Anion Gap (5-15) mmol/L BUN (7-18) mg/dL Creatinine (0.55-1.02) mg/dL Est Cr Clr Drug Dosing mL/min Estimated GFR (MDRD) Glucose (74-106) mg/dL Lactic Acid 6.9 H* (0.4-2.0) mmol/L Calcium (8.5-10.1) mg/dL Corrected Calcium (8.5-10.1) mg/dL Magnesium (1.8-2.4) mg/dL Total Bilirubin (0.2-1.0) mg/dL AST (15-37) U/L ALT (14-59) U/L Alkaline Phosphatase (46-116) U/L Creatine Kinase (26-192) U/L Troponin I High Sens (<=51) ng/L Total Protein (6.4-8.2) g/dL Albumin (3.4-5.0) g/dL Globulin Albumin/Globulin Ratio Amylase (25-115) U/L Lipase (73-393) U/L Ethyl Alcohol (0-3) mg/dL Meds: Medications Generic Name Dose Route Start Last Admin Trade Name Griffinq PRN Reason Stop Dose Admin Sodium Chloride 10 ml 12/09/20 07:34 Sodium Chloride 0.9% 10 Ml Syringe FLUSH ASDIRECTED PRN Keep Vein Open Discontinued Medications Generic Name Dose Route Start Last Admin Trade Name Freq PRN Reason Stop Dose Admin Hydromorphone HCl 1 mg 12/09/20 07:34 12/09/20 07:44 Hydromorphone 1 Mg/Ml Syringe IVPUSH 12/09/20 07:35 1 mg ONETIME ONE Administration Hydromorphone HCl 2 mg 12/09/20 08:23 12/09/20 08:32 Hydromorphone 1 Mg/Ml Syringe IVPUSH 12/09/20 08:24 2 mg ONETIME ONE Administration Sodium Chloride 1,000 mls @ 999 mls/hr 12/09/20 07:35 12/09/20 07:45 Normal Saline IV 12/09/20 08:35 999 mls/hr ONETIME ONE Administration Morphine Sulfate 2 mg 12/09/20 07:18 12/09/20 07:24 Morphine 2 Mg/Ml Syringe IVPUSH 12/09/20 07:19 2 mg ONETIME ONE Administration Ondansetron HCl 4 mg 12/09/20 07:18 12/09/20 07:24 Ondansetron 4 Mg/2 Ml Sdv IVPUSH 12/09/20 07:19 4 mg ONETIME ONE Administration - Radiology Interpretation Free Text/Narrative:: XR Right Hip-Note dislocated prothesis, no fx apparent (See final report) Departure - Departure Time of Disposition: 08:30 Disposition: DC/Tfer to Acute Hospital 02 Condition: Good Clinical Impression: Alcohol abuse, Alcohol use Failure of right total hip arthroplasty with dislocation of hip Qualifiers: Encounter type: initial encounter Qualified Code(s): T84.020A - Dislocation of internal right hip prosthesis, initial encounter Fall Qualifiers: Encounter type: initial encounter Qualified Code(s): W19.XXXA - Unspecified fall, initial encounter Rhabdomyolysis Qualifiers: Rhabdomyolysis type: traumatic Encounter type: initial encounter Qualified Code(s): T79.6XXA - Traumatic ischemia of muscle, initial encounter - Discharge Information Forms: ED Department Discharge, Interfacility Transfer LORE Sepsis Event Note (ED) - Focused Exam Vital Signs: Vital Signs Temp Pulse Resp BP Pulse Ox 12/09/20 07:10 36.3 C 105 H 16 130/78 95 - My Orders Last 24 Hours: My Active Orders 12/09/20 07:19 Hip Min 2V or 3V Rt [CR] Stat 12/09/20 07:34 EKG Documentation Completion [RC] STAT UA RFX CHRISTI AND CULT IF INDIC [URIN] Stat URINE DRUG SCREEN,POC [POC] Stat Sodium Chloride 0.9% [Saline Flush] 10 ml FLUSH ASDIRECTED PRN Saline Lock Insert [OM.PC] Stat 12/09/20 07:35 Urinary Catheter Assessment [RC] ASDIRECTED 12/09/20 07:45 Insert Shaffer Catheter [Insert Urinary Catheter] [OM.PC] Q24H - Assessment/Plan Last 24 Hours: My Active Orders 12/09/20 07:19 Hip Min 2V or 3V Rt [CR] Stat 12/09/20 07:34 EKG Documentation Completion [RC] STAT UA RFX CHRISTI AND CULT IF INDIC [URIN] Stat URINE DRUG SCREEN,POC [POC] Stat Sodium Chloride 0.9% [Saline Flush] 10 ml FLUSH ASDIRECTED PRN Saline Lock Insert [OM.PC] Stat 12/09/20 07:35 Urinary Catheter Assessment [RC] ASDIRECTED 12/09/20 07:45 Insert Shaffer Catheter [Insert Urinary Catheter] [OM.PC] Q24H Assessment:: 1)Failed Right Hip Arthroplasty-Dislocated 2)Fall 3)Rhabdomyolysis 4)Alcohol Use Plan: -Transfer to [facility] to Dr Johnson
[2020-12-09] MEDS: HYDROmorphone 1 MG/ML Syringe IVPUSH ONE ×2 (07:44→08:32)
[2020-12-09] MEDS: Sodium Chloride 0.9% 1,000 ML IV ONE (07:45)
[2020-12-09 08:17] LABS: PTT,PARTIAL THROMBOPLSTIN TIME 21.4 SEC (25.6-32.8)
[2020-12-09 08:34] LABS: ANION GAP 21.5 mmol/L (5-15)
--- NOTE | 2020-12-09 08:51 | CR ---
[id number] RAD/RAD Hip Right 2-3V Exam: RAD Hip Right 2-3V Indication:INJURY/PAIN. Comparison: August 20, 2020. Discussion/Impression: AP view of the right hip demonstrates dislocation of the femoroacetabular prosthesis. Femoral component is displaced superiorly in relation to the acetabular component. No additional information is added by the image labeled "axial view." No radiographically evident fracture. Feliberto Gore MD 12/09/20 0850 Thank you for allowing us to participate in the care of your patient.
[2020-12-09 09:01] LABS: BUPRENORPHINE,URINE NEGATIVE (NEGATIVE); MARIJUANA,URINE NEGATIVE (NEGATIVE); METHYLENEDIOXYMETHAMP,UR NEGATIVE (NEGATIVE); PHENCYCLIDINE,URINE NEGATIVE (NEGATIVE)
[2020-12-09 09:14] VITALS: BP 133/83; PULSE 103
== END 2020-12-09 09:15 | disposition short-term general hospital (02) ==
LOC: VM.ED 07:07
DX: T84.020A Dislocation of internal right hip prosthesis, initial encounter (principal); T79.6XXA Traumatic ischemia of muscle, initial encounter; F10.10 Alcohol abuse, uncomplicated; Y90.6 Blood alcohol level of 120-199 mg/100 ml; E78.00 Pure hypercholesterolemia, unspecified; E03.9 Hypothyroidism, unspecified; Z88.8 Allergy status to other drugs, medicaments and biological substances; Z79.899 Other long term (current) drug therapy; W01.0XXA Fall on same level from slipping, tripping and stumbling without subsequent striking against object, initial encounter
CPT/HCPCS: 36415; 51702; 80053; 80305-QW; 80307; 81003; 82150; 82550; 83605; 83690; 83735; 84484; 85025; 85610; 85730; 93005; 96374; 96375; 96376; 99285-25; J1170; J2270; J2405; J7030

== ENCOUNTER 2021-01-08 14:19 | Emergency (ER) | payer BC ==
[2021-01-08] MEDS ORDERED: HYDROmorphone 1 MG/ML Syringe IVPUSH ONE (14:24)
[2021-01-08] MEDS ORDERED: Midazolam 1 MG/ML 2 ML SDV IVPUSH ONE (14:34)
--- NOTE | 2021-01-08 14:34 | EDM.PDOC ---
ED HPI GENERAL MEDICAL PROBLEM - General Stated Complaint: DISLOCATED HIP Time Seen by Provider: 01/08/21 14:25 Source of Information: Reports: Patient History Limitations: Reports: No Limitations - History of Present Illness INITIAL COMMENTS - FREE TEXT/NARRATIVE: Pt. presents to ER with complaints of R hip pain/possible dislocation. Pt. states that she was changing positions in her chair and felt the hip dislocate. Pt. has a history of recent hip replacement earlier this spring with dislocation of the joint on 12/09/2020. Dr. Amezquita at [facility] is the patient's surgeon. Pt. was transferred to [facility] when she dislocated it at the beginning of December. The hip was reduced and patient went home the next day. Pt. denies any recent trauma. She last consumed food yesterday. The only oral intake today was water to take her medications. Pt. denies consumption of ETOH, but smells highly of alcohol. Right Hip Pain Score (Numeric/FACES): 10 - Related Data Allergies Allergy/AdvReac Type Severity Reaction Status Date / Time fluoxetine HCl [From Prozac] Allergy Swelling Verified 01/08/21 15:05 Home Meds: Home Meds QUEtiapine [SEROquel] 25 mg PO BID PRN 08/20/18 [History] QUEtiapine [SEROquel] 50 mg PO BEDTIME 08/20/18 [History] Mirtazapine 1 tab PO BEDTIME 01/17/19 [History] ALPRAZolam [Alprazolam] 0.25 mg PO TID PRN 08/15/19 [History] DULoxetine HCl [Duloxetine HCl] 60 mg PO BEDTIME 30 Days #30 capsule. 12/01/19 [Rx] DULoxetine [Cymbalta] 30 mg PO DAILY 12/09/20 [History] Gabapentin [Neurontin] 600 mg PO TID 12/09/20 [History] Hydrocodone/Acetaminophen [Hydrocodone-Acetamin 5-325 mg] 1 each PO DAILY 12/09/20 [History] Levothyroxine 150 mcg PO ACBREAKFAST 12/09/20 [History] Potassium Chloride 20 meq PO DAILY 12/09/20 [History] atorvaSTATin [Lipitor] 20 mg PO DAILY 12/09/20 [History] Past Medical History Cardiovascular History: Reports: High Cholesterol, Other (See Below) Other Cardiovascular History: REcent hypokalemia and in ER Gastrointestinal History: Reports: Chronic Diarrhea, GERD, Inflammatory Bowel Disease 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 Restless leg SX Psychiatric History: Reports: Addiction, Anxiety, Depression, Panic Attack Other Psychiatric History: Tobacco use. HX alcohol abuse Endocrine/Metabolic History: Reports: Hypothyroidism Oncologic (Cancer) History: Reports: Breast Other Oncologic History: Family HX colon CA - Infectious Disease History Infectious Disease History: Reports: None - Past Surgical History Other HEENT Surgeries/Procedures: septoplasty GI Surgical History: Reports: Colonoscopy Female Surgical History: Reports: Section Musculoskeletal Surgical History: Reports: Hip Replacement, Knee Replacement, Shoulder Surgery Other Musculoskeletal Surgeries/Procedures:: bilat. wrist surgery Oncologic Surgical History: Reports: Lumpectomy Social & Family History - Caffeine Use Caffeine Use: Reports: Soda ED ROS GENERAL - Review of Systems Review Of Systems: See Below Constitutional: Reports: No Symptoms HEENT: Reports: No Symptoms Respiratory: Reports: No Symptoms Cardiovascular: Reports: No Symptoms Endocrine: Reports: No Symptoms GI/Abdominal: Reports: No Symptoms : Reports: No Symptoms Musculoskeletal: Reports: Joint Pain Skin: Reports: No Symptoms Neurological: Reports: Other (EDOUARD 301) Psychiatric: Reports: No Symptoms Hematologic/Lymphatic: Reports: No Symptoms ED EXAM, GENERAL - Physical Exam Exam: See Below Exam Limited By: No Limitations General Appearance: Alert, WD/WN, Severe Distress Respiratory/Chest: No Respiratory Distress, Lungs Clear, Normal Breath Sounds, No Accessory Muscle Use, Chest Non-Tender Cardiovascular: Normal Peripheral Pulses, Regular Rate, Rhythm, No Edema, No JVD Peripheral Pulses: 4+: Posterior Tibial (L), Posterior Tibial (R), Dorsalis Pedis (L), Dorsalis Pedis (R) Extremities: Other (deformity/pain with manipulation of R hip) Course - Vital Signs Last Recorded V/S: Last Vital Signs Temp 36.8 C 01/08/21 14:20 Pulse 72 01/08/21 15:05 Resp 16 01/08/21 15:05 BP 107/66 01/08/21 15:05 Pulse Ox 98 01/08/21 15:05 - Orders/Labs/Meds Orders: Active Orders 24 hr Category Date Time Status Hip Min 2V or 3V Rt [CR] Stat Exams 05/01/21 14:29 Ordered Labs: Laboratory Tests 01/08/21 01/08/21 01/08/21 Range/Units 14:49 14:49 14:49 WBC 6.2 (4.0-10.0) x10^3/uL RBC 4.21 (4.00-5.50) x10^6/uL Hgb 14.7 D (12.0-16.0) g/dL Hct 41.4 (33.0-47.0) % MCV 98.3 H (78.0-93.0) fL MCH 34.9 H (26.0-32.0) pg MCHC 35.5 (32.0-36.0) g/dL RDW Coeff of Delfino 17.1 H (10.0-15.0) % Plt Count 338 (130-400) x10^3/uL Neut % (Auto) 42.5 L (50.0-80.0) % Lymph % (Auto) 49.3 (25.0-50.0) % Gallia % (Auto) 5.9 (2.0-11.0) % Eos % (Auto) 1.5 (0.0-4.0) % Baso % (Auto) 0.8 (0.2-1.2) % PT 11.0 (9.9-12.5) SEC INR 1.0 L (2.0-3.5) Sodium 144 (136-145) mmol/L Potassium 3.7 (3.5-5.1) mmol/L Chloride 104 (98-107) mmol/L Carbon Dioxide 29 (21-32) mmol/L Anion Gap 14.7 (5-15) mmol/L BUN 13 (7-18) mg/dL Creatinine 0.8 (0.55-1.02) mg/dL Est Cr Clr Drug Dosing 81.20 mL/min Estimated GFR (MDRD) > 60 Glucose 104 H (70-99) mg/dL Calcium 8.3 L (8.5-10.1) mg/dL Corrected Calcium 8.70 (8.5-10.1) mg/dL Total Bilirubin 0.5 (0.2-1.0) mg/dL AST 23 (15-37) U/L ALT 27 (14-59) U/L Alkaline Phosphatase 102 (46-116) U/L Total Protein 7.0 (6.4-8.2) g/dL Albumin 3.5 (3.4-5.0) g/dL Globulin 3.5 Albumin/Globulin Ratio 1.00 Ethyl Alcohol 301 H* (0-3) mg/dL Meds: Medications Discontinued Medications Generic Name Dose Route Start Last Admin Trade Name Luz PRN Reason Stop Dose Admin Hydromorphone HCl 1 mg 01/08/21 14:24 01/08/21 14:29 Hydromorphone 1 Mg/Ml Syringe IVPUSH 01/08/21 14:25 1 mg ONETIME ONE Administration Midazolam HCl 2 mg 01/08/21 14:34 01/08/21 14:49 Midazolam 1 Mg/Ml 2 Ml Sdv IVPUSH 01/08/21 14:35 2 mg ONETIME ONE Administration - Radiology Interpretation Free Text/Narrative:: Dislocation of R hip. - Re-Assessments/Exams Free Text/Narrative Re-Assessment/Exam: Pt. was given dilaudid 1mg IV which did little to control the pain. Pt. was subsequently given versed 2mg IV for further pain control/anxiolysis. Blood alcohol 301. Departure - Departure Time of Disposition: 15:43 Disposition: DC/Tfer to Acute Hospital 02 Clinical Impression: Dislocation, hip - Discharge Information Sepsis Event Note (ED) - Focused Exam Vital Signs: Vital Signs Temp Pulse Resp BP Pulse Ox 01/08/21 15:05 72 16 107/66 98 01/08/21 14:55 82 16 107/67 97 01/08/21 14:20 36.8 C 90 16 142/95 H 97 - My Orders Last 24 Hours: My Active Orders 01/08/21 14:29 Hip Min 2V or 3V Rt [CR] Stat - Assessment/Plan Last 24 Hours: My Active Orders 01/08/21 14:29 Hip Min 2V or 3V Rt [CR] Stat Plan: Pt. will be transferred to [facility]. Dr. Amezquita is accepting. Pt. will be transported via [facility] ground ambulance. Family is aware.
[2021-01-08 15:05] VITALS: PULSE 72
[2021-01-08 15:22] LABS: CHLORIDE,CL 104 mmol/L (98-107); SODIUM,NA 144 mmol/L (136-145)
[2021-01-08 15:23] LABS: ANION GAP 14.7 mmol/L (5-15)
--- NOTE | 2021-01-08 15:43 | CR ---
[id number] RAD/RAD Hip Right 2-3V EXAM: RAD Hip Right 2-3V CLINICAL DATA: RECURRENT DISLOCATION COMPARISON: CORRELATION IS MADE WITH THE EXAM OF DECEMBER 09, 2020 FINDINGS: The right hip again is seen to be dislocated The left hip prosthesis is seen. IMPRESSION: RECURRENT DISLOCATION OF RIGHT HIP PROSTHESIS Gómez Alarcon MD 01/08/21 [id number] Thank you for allowing us to participate in the care of your patient.
[2021-01-08 16:34] VITALS: BP 112/88
== END 2021-01-08 16:10 | disposition short-term general hospital (02) ==
LOC: VM.ED 14:19
DX: S73.004A Unspecified dislocation of right hip, initial encounter (principal); E78.00 Pure hypercholesterolemia, unspecified; K21.9 Gastro-esophageal reflux disease without esophagitis; E03.9 Hypothyroidism, unspecified; X58.XXXA Exposure to other specified factors, initial encounter
CPT/HCPCS: 36415; 80053; 80307; 85025; 85610; 96374; 96375; 99283; 99285-25; J1170; J2250

== ENCOUNTER 2021-01-14 11:58 | Emergency (ER) | payer OTHER, BC ==
[2021-01-14 12:29] LABS: PTT,PARTIAL THROMBOPLSTIN TIME 21.7 SEC (25.6-32.8)
[2021-01-14 12:42] LABS: CHLORIDE,CL 104 mmol/L (98-107); SODIUM,NA 142 mmol/L (136-145)
[2021-01-14] MEDS ORDERED: fentaNYL 50 MCG/ML SDV IVPUSH ONE (12:42)
--- NOTE | 2021-01-14 12:42 | EDM.PDOC ---
ED HPI GENERAL MEDICAL PROBLEM - General Stated Complaint: TRAUMA CODE Time Seen by Provider: 01/14/21 12:37 Source of Information: Reports: Patient, EMS History Limitations: Reports: No Limitations - History of Present Illness INITIAL COMMENTS - FREE TEXT/NARRATIVE: Pt. presents to ER via EMS. Pt. states that she was drinking heavily last night and fell, striking his face on the floor and dislocating her R hip. Pt. spent the night on the floor and was found on the floor by her Mother this AM. Mom could not get a hold of her last night on the phone and found her lying on the floor this AM. Pt. relates to drinking heavily. She was confused for EMS. She was found to have a hematoma to her upper lip consistent with a frontal fall, as well and ecchymosis around her L eye. Pt. denies any neck pain. Denies any chest pain or shortness of breath. Denies any abdominal pain. Her primary complaint is that of R hip pain/deformity. Onset Date: 01/13/21 Location: Reports: Face, Lower Extremity, Right - Related Data Allergies Allergy/AdvReac Type Severity Reaction Status Date / Time fluoxetine HCl [From Prozac] Allergy Swelling Verified 01/08/21 15:05 Home Meds: Home Meds QUEtiapine [SEROquel] 25 mg PO BID PRN 08/20/18 [History] QUEtiapine [SEROquel] 50 mg PO BEDTIME 08/20/18 [History] Mirtazapine 1 tab PO BEDTIME 01/17/19 [History] ALPRAZolam [Alprazolam] 0.25 mg PO TID PRN 08/15/19 [History] DULoxetine HCl [Duloxetine HCl] 60 mg PO BEDTIME 30 Days #30 capsule. 12/01/19 [Rx] DULoxetine [Cymbalta] 30 mg PO DAILY 12/09/20 [History] Gabapentin [Neurontin] 600 mg PO TID 12/09/20 [History] Hydrocodone/Acetaminophen [Hydrocodone-Acetamin 5-325 mg] 1 each PO DAILY 09/30 [History] Levothyroxine 150 mcg PO ACBREAKFAST 12/09/20 [History] Potassium Chloride 20 meq PO DAILY 12/09/20 [History] atorvaSTATin [Lipitor] 20 mg PO DAILY 12/09/20 [History] Past Medical History Cardiovascular History: Reports: High Cholesterol, Other (See Below) Other Cardiovascular History: REcent hypokalemia and in ER Gastrointestinal History: Reports: Chronic Diarrhea, GERD, Inflammatory Bowel Disease 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 Restless leg SX Psychiatric History: Reports: Addiction, Anxiety, Depression, Panic Attack Other Psychiatric History: Tobacco use. HX alcohol abuse Endocrine/Metabolic History: Reports: Hypothyroidism Oncologic (Cancer) History: Reports: Breast Other Oncologic History: Family HX colon CA - Infectious Disease History Infectious Disease History: Reports: None - Past Surgical History Other HEENT Surgeries/Procedures: septoplasty GI Surgical History: Reports: Colonoscopy Female Surgical History: Reports: Section Musculoskeletal Surgical History: Reports: Hip Replacement, Knee Replacement, Shoulder Surgery Other Musculoskeletal Surgeries/Procedures:: bilat. wrist surgery Oncologic Surgical History: Reports: Lumpectomy Social & Family History - Caffeine Use Caffeine Use: Reports: Soda ED ROS GENERAL - Review of Systems Review Of Systems: See Below Constitutional: Reports: No Symptoms HEENT: Reports: No Symptoms Respiratory: Reports: No Symptoms Cardiovascular: Reports: No Symptoms Endocrine: Reports: No Symptoms GI/Abdominal: Reports: No Symptoms : Reports: No Symptoms Musculoskeletal: Reports: Leg Pain, Joint Pain (R hip pain) Skin: Reports: No Symptoms Neurological: Reports: No Symptoms Psychiatric: Reports: No Symptoms Hematologic/Lymphatic: Reports: No Symptoms Immunologic: Reports: No Symptoms ED EXAM, GENERAL - Physical Exam Exam: See Below Exam Limited By: No Limitations General Appearance: Alert, WD/WN, No Apparent Distress Eye Exam: Bilateral Eye: EOMI, Normal Fundi, Normal Inspection, PERRL Ears: Normal External Exam, Normal Canal, Hearing Grossly Normal, Normal TMs Nose: Normal Inspection, Normal Mucosa, No Blood Throat/Mouth: Normal Inspection, Normal Lips, Normal Teeth, Normal Gums, Normal Oropharynx, Normal Voice, No Airway Compromise Head: Atraumatic, Normocephalic Neck: Normal Inspection, Supple, Non-Tender, Full Range of Motion Respiratory/Chest: No Respiratory Distress, Lungs Clear, Normal Breath Sounds, No Accessory Muscle Use, Chest Non-Tender Cardiovascular: Normal Peripheral Pulses, Regular Rate, Rhythm, No Edema, No Gallop, No JVD, No Murmur, No Rub Peripheral Pulses: 4+: Posterior Tibial (L), Posterior Tibial (R), Dorsalis Pedis (L), Dorsalis Pedis (R) GI/Abdominal: Normal Bowel Sounds, Soft, Non-Tender, No Distention, No Mass (Female) Exam: Deferred Rectal (Female) Exam: Deferred Back Exam: Normal Inspection, Full Range of Motion Extremities: Normal Capillary Refill, Other (obvious deformity to R hip with inward rotation/shortening of the extremity. CMS intact. No other obvious cyndee deformity noted.) Neurological: CN II-XII Intact, Normal Gait, Normal Reflexes, No Motor/Sensory Deficits, Disoriented Psychiatric: Anxious, Tearful #1 Interpretation Rhythm: NSR EKG Interpretation Comments: Sinus tach without any acute ST or T wave abn. Course - Orders/Labs/Meds Orders: Active Orders 24 hr Category Date Time Status EKG Documentation Completion [RC] STAT Care 01/14/21 12:10 Active Insert Shaffer Catheter [Insert Urinary Catheter] [OM.PC] Care 01/14/21 12:15 Ordered Q24H Urinary Catheter Assessment [RC] ASDIRECTED Care 01/14/21 12:13 Active Cervical Spine wo Cont [CT] Stat Exams 01/14/21 12:07 Ordered Chest 1V Frontal [CR] Stat Exams 01/14/21 12:07 Ordered Head wo Cont [CT] Stat Exams 01/14/21 12:06 Ordered Pelvis 1V or 2V [CR] Stat Exams 01/14/21 12:08 Ordered Blood Alcohol [ETHANOL BLOOD MEDICAL] [CHEM] Stat Lab 01/14/21 12:05 Received COMPREHENSIVE METABOLIC PN,CMP [CHEM] Stat Lab 01/14/21 12:05 Received CORONAVIRUS COVID-19 XAVIER [MOLEC] Stat Lab 01/14/21 12:19 Received CPK [CREATINE KINASE,CK] [CHEM] Stat Lab 01/14/21 12:05 Received DRUG SCREEN, URINE [URCHEM] Stat Lab 01/14/21 12:13 Ordered MAGNESIUM [CHEM] Stat Lab 01/14/21 12:05 Received TROPONIN I HIGH SENSITIVITY [CHEM] Stat Lab 01/14/21 12:05 Received TSH ULTRASENSITIVE [CHEM] Stat Lab 01/14/21 12:05 Received fentaNYL Med 01/14/21 12:42 Once 50 mcg IVPUSH ONETIME ONE Labs: Laboratory Tests 01/14/21 01/14/21 Range/Units 12:05 12:05 WBC 9.0 (4.0-10.0) x10^3/uL RBC 4.16 (4.00-5.50) x10^6/uL Hgb 14.3 (12.0-16.0) g/dL Hct 42.4 (33.0-47.0) % MCV 101.9 H D (78.0-93.0) fL MCH 34.4 H (26.0-32.0) pg MCHC 33.7 (32.0-36.0) g/dL RDW Coeff of Delfino 17.8 H (10.0-15.0) % Plt Count 327 (130-400) x10^3/uL Neut % (Auto) 72.8 (50.0-80.0) % Lymph % (Auto) 22.7 L (25.0-50.0) % Hamlin % (Auto) 3.5 (2.0-11.0) % Eos % (Auto) 0.4 (0.0-4.0) % Baso % (Auto) 0.6 (0.2-1.2) % PT 10.2 (9.9-12.5) SEC INR 0.9 L (2.0-3.5) APTT 21.7 L (25.6-32.8) SEC - Re-Assessments/Exams Free Text/Narrative Re-Assessment/Exam: Pt. maintaining airway on arrival to ER. GCS 13-14 during her stay. Pt. O2 sat 92% on RA. Physical exam performed. Portable chest and pelvis are being obtained, as well as CT brain and C-spine. All images being forwarded to [facility]. 01/14/21 12:54 Pain is being treated with 50mg doses of fentanyl with good results. Shaffer catheter was placed. Departure - Departure Time of Disposition: 12:58 Disposition: Home, Self-Care 01 Clinical Impression: Dislocation of prosthetic device, Major traumatic injury - Discharge Information Forms: Interfacility Transfer EMTALA - My Orders Last 24 Hours: My Active Orders 01/14/21 12:05 Blood Alcohol [ETHANOL BLOOD MEDICAL] [CHEM] Stat COMPREHENSIVE METABOLIC PN,CMP [CHEM] Stat CPK [CREATINE KINASE,CK] [CHEM] Stat MAGNESIUM [CHEM] Stat TROPONIN I HIGH SENSITIVITY [CHEM] Stat TSH ULTRASENSITIVE [CHEM] Stat 01/14/21 12:06 Head wo Cont [CT] Stat 01/14/21 12:07 Cervical Spine wo Cont [CT] Stat Chest 1V Frontal [CR] Stat 01/14/21 12:08 Pelvis 1V or 2V [CR] Stat 01/14/21 12:10 EKG Documentation Completion [RC] STAT 01/14/21 12:13 Urinary Catheter Assessment [RC] ASDIRECTED DRUG SCREEN, URINE [URCHEM] Stat 01/14/21 12:15 Insert Shaffer Catheter [Insert Urinary Catheter] [OM.PC] Q24H 01/14/21 12:19 CORONAVIRUS COVID-19 XAVIER [MOLEC] Stat 01/14/21 12:42 fentaNYL 50 mcg IVPUSH ONETIME ONE - Assessment/Plan Last 24 Hours: My Active Orders 01/14/21 12:05 Blood Alcohol [ETHANOL BLOOD MEDICAL] [CHEM] Stat COMPREHENSIVE METABOLIC PN,CMP [CHEM] Stat CPK [CREATINE KINASE,CK] [CHEM] Stat MAGNESIUM [CHEM] Stat TROPONIN I HIGH SENSITIVITY [CHEM] Stat TSH ULTRASENSITIVE [CHEM] Stat 01/14/21 12:06 Head wo Cont [CT] Stat 01/14/21 12:07 Cervical Spine wo Cont [CT] Stat Chest 1V Frontal [CR] Stat 01/14/21 12:08 Pelvis 1V or 2V [CR] Stat 01/14/21 12:10 EKG Documentation Completion [RC] STAT 01/14/21 12:13 Urinary Catheter Assessment [RC] ASDIRECTED DRUG SCREEN, URINE [URCHEM] Stat 01/14/21 12:15 Insert Shaffer Catheter [Insert Urinary Catheter] [OM.PC] Q24H 01/14/21 12:19 CORONAVIRUS COVID-19 XAVIER [MOLEC] Stat 01/14/21 12:42 fentaNYL 50 mcg IVPUSH ONETIME ONE Plan: Decision was made to transfer pt. to a trauma center, given her extended period of time she spent of the ground and probable rhabdo, and due to facial trauma. Pt. will be transferred via [facility] ground ambulance. She is a code 1. Thank you to Dr. Guerrero for accepting the patient. Continue IV fluids at 250ml/hr. after first liter. Fentanyl 50mcg every 15 min as needed for severe pain.
[2021-01-14 12:44] LABS: ANION GAP 18.6 mmol/L (5-15)
[2021-01-14 12:55] LABS: BARBITURATE SCREEN,URINE NEGATIVE (NEGATIVE); BENZODIAZEPINES SCREEN,URINE NEGATIVE (NEGATIVE); EDDP,URINE SCREEN NEGATIVE (NEGATIVE); METHAMPHETAMINE SCREEN, URINE NEGATIVE (NEGATIVE); TCA SCREEN,URINE NEGATIVE (NEGATIVE); THC SCREEN,URINE 50 NG/ML NEGATIVE (NEGATIVE)
--- NOTE | 2021-01-14 13:37 | CR ---
[id number] RAD/RAD Chest PA or AP 1V EXAM: RAD Chest PA or AP 1V INDICATION: TRAUMA CODE. COMPARISON: November 12, 2020. DISCUSSION: Cardiomediastinal silhouette is normal in size and contour. Lungs are clear. No pleural effusion or pneumothorax. No visible rib fractures. Surgical clips in the right axilla. IMPRESSION: Negative examination of the chest. Feliberto Gore MD 01/14/21 [id number] Thank you for allowing us to participate in the care of your patient.
--- NOTE | 2021-01-14 13:39 | CT ---
[id number] CT/CT Cervical Spine WO IV EXAM: NONCONTRAST CERVICAL SPINE CT INDICATION: TRAUMA CODE. COMPARISON: None. DISCUSSION: Mild straightening of the cervical lordosis. The vertebral bodies are otherwise normal in height and alignment. No fracture or suspicious osseous lesion is identified. Moderate disc degeneration C5-C6 and C6-C7 with milder changes at the remaining disc levels. Mild to moderate facet arthropathy throughout the cervical spine. IMPRESSION: 1. No evidence of acute cervical spine trauma. Alec Amaya MD 01/14/21 [id number] Thank you for allowing us to participate in the care of your patient.
--- NOTE | 2021-01-14 13:39 | CR ---
[id number] RAD/RAD Pelvis 1-2V Exam: RAD Pelvis 1-2V Indication:RIGHT HIP PAIN. Comparison: Multiple priors, most recent from January 08, 2021. Discussion/Impression: Right femoroacetabular arthroplasty demonstrates dislocation. Femoral component is superiorly dislocated in relation to the acetabular component. Findings were seen on examination from January 08, 2021. No visible periprosthetic fracture or other significant change from that examination. Feliberto Gore MD 01/14/21 [id number] Thank you for allowing us to participate in the care of your patient.
--- NOTE | 2021-01-14 13:46 | CT ---
[id number] CT/CT Head WO IV EXAM: NONCONTRAST HEAD CT INDICATION: TRAUMA CODE, FACIAL TRAUMA. COMPARISON: None. DISCUSSION: The ventricles and sulci are normal in size and configuration. The steen and white matter are normal in attenuation. No mass effect or midline shift. No acute hemorrhage or extra-axial fluid collection. No acute territorial infarct is identified. A limited look at the orbits and paranasal sinuses is unremarkable. Benign-appearing osseous excrescence off the medial lateral left calvarium measuring about 35 x 8 mm. IMPRESSION: 1. No evidence of acute intracranial trauma. Alec Amaya MD 01/14/21 [id number] Thank you for allowing us to participate in the care of your patient.
== END 2021-01-14 13:00 | disposition short-term general hospital (02) ==
LOC: VM.ED 11:58
DX: T84.020A Dislocation of internal right hip prosthesis, initial encounter (principal); E78.00 Pure hypercholesterolemia, unspecified; E03.9 Hypothyroidism, unspecified; Z88.5 Allergy status to narcotic agent; Z79.899 Other long term (current) drug therapy; Z20.822 Contact with and (suspected) exposure to COVID-19; W18.09XA Striking against other object with subsequent fall, initial encounter
CPT/HCPCS: 36415; 51702; 70450; 71045; 72125; 72170; 80053; 80305-QW; 80307; 82550; 83735; 84443; 84484; 85025; 85610; 85730; 93005; 93010; 96374; 99284; 99285-25; J3010; U0002

== ENCOUNTER 2021-02-09 15:29 | Emergency (ER) | payer BC ==
[2021-02-09] MEDS ORDERED: Sodium Chloride 0.9% 10 ML Syringe FLUSH PRN (15:41)
[2021-02-09 16:12] LABS: CHLORIDE,CL 108 mmol/L (98-107); SODIUM,NA 146 mmol/L (136-145)
[2021-02-09 16:13] LABS: ANION GAP 15.5 mmol/L (5-15)
--- NOTE | 2021-02-09 16:21 | EDM.PDOC ---
ED HPI GENERAL MEDICAL PROBLEM - General Time Seen by Provider: 02/09/21 15:29 Source of Information: Reports: Patient History Limitations: Reports: No Limitations - History of Present Illness INITIAL COMMENTS - FREE TEXT/NARRATIVE: Pt. presents to ER via EMS. Pt. had a fall at home and thinks she dislocated her L hip. She states that she fell today. This has happened several times in the past few months, necessitating reduction and conscious sedation. Dr. Amezquita at [facility] is the patient's surgeon. Initially the patient denied any neck pain but she later complained that her neck was hurting. EMS states that she was confused but able to answer some questions on scene, but became unresponsive when enroute to ER. Pt. vital signs were all within normal limits. She was satting in the 99-100% range. She briefly became conscious, but shortly after arrival to ER, she again became unresponsive. GCS was 3 despite strong noxious stimuli. Pt. has been confused at minimum throughout her stay in ER. ROS is largely unobtainable. Trauma code was called by EMS due to mental status. Onset: Today Onset Date: 02/09/21 Location: Reports: Lower Extremity, Right, Generalized Quality: Reports: Sharp - Related Data Allergies Allergy/AdvReac Type Severity Reaction Status Date / Time fluoxetine HCl [From Prozac] Allergy Swelling Verified 01/08/21 15:05 Home Meds: Home Meds QUEtiapine [SEROquel] 25 mg PO BID PRN 08/20/18 [History] QUEtiapine [SEROquel] 50 mg PO BEDTIME 08/20/18 [History] Mirtazapine 1 tab PO BEDTIME 01/17/19 [History] ALPRAZolam [Alprazolam] 0.25 mg PO TID PRN 08/15/19 [History] DULoxetine HCl [Duloxetine HCl] 60 mg PO BEDTIME 30 Days #30 capsule. 12/01/19 [Rx] DULoxetine [Cymbalta] 30 mg PO DAILY 12/09/20 [History] Gabapentin [Neurontin] 600 mg PO TID 12/09/20 [History] Hydrocodone/Acetaminophen [Hydrocodone-Acetamin 5-325 mg] 1 each PO DAILY 12/09/20 [History] Levothyroxine 150 mcg PO ACBREAKFAST 12/09/20 [History] Potassium Chloride 20 meq PO DAILY 12/09/20 [History] atorvaSTATin [Lipitor] 20 mg PO DAILY 12/09/20 [History] Past Medical History Cardiovascular History: Reports: High Cholesterol, Other (See Below) Other Cardiovascular History: REcent hypokalemia and in ER Gastrointestinal History: Reports: Chronic Diarrhea, GERD, Inflammatory Bowel Disease [employer] 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 Restless leg SX Psychiatric History: Reports: Addiction, Anxiety, Depression, Panic Attack Other Psychiatric History: Tobacco use. HX alcohol abuse Endocrine/Metabolic History: Reports: Hypothyroidism Oncologic (Cancer) History: Reports: Breast Other Oncologic History: Family HX colon CA - Infectious Disease History Infectious Disease History: Reports: None - Past Surgical History Other HEENT Surgeries/Procedures: septoplasty GI Surgical History: Reports: Colonoscopy Female Surgical History: Reports: Section Musculoskeletal Surgical History: Reports: Hip Replacement, Knee Replacement, Shoulder Surgery Other Musculoskeletal Surgeries/Procedures:: bilat. wrist surgery Oncologic Surgical History: Reports: Lumpectomy Social & Family History - Caffeine Use Caffeine Use: Reports: Soda ED ROS GENERAL - Review of Systems Review Of Systems: Unable To Obtain Reason Not Obtained: Unresponsive ED EXAM, GENERAL - Physical Exam Exam: See Below Exam Limited By: Uncooperative General Appearance: Obtunded Eye Exam: Bilateral Eye: Normal Fundi, Normal Inspection, PERRL Ears: Normal External Exam, Normal Canal, Normal TMs Nose: Normal Inspection, Normal Mucosa, No Blood Throat/Mouth: Normal Inspection, Normal Lips, Normal Teeth, Normal Gums, Normal Oropharynx, Normal Voice, No Airway Compromise Head: Atraumatic, Normocephalic Neck: Normal Inspection, Supple, Non-Tender, Full Range of Motion Respiratory/Chest: No Respiratory Distress, Lungs Clear, Normal Breath Sounds, No Accessory Muscle Use, Chest Non-Tender Cardiovascular: Normal Peripheral Pulses, Regular Rate, Rhythm, No JVD, No Murmur Peripheral Pulses: 4+: Radial (L), Posterior Tibial (L), Posterior Tibial (R), Dorsalis Pedis (L), Dorsalis Pedis (R) GI/Abdominal: Soft, No Distention, No Mass (Female) Exam: Deferred Rectal (Female) Exam: Deferred Extremities: Normal Inspection, Non-Tender, No Pedal Edema, Normal Capillary Refill Neurological: Unresponsive, Other (GCS at highest was 13 (3,4,6). GCS at lowest was 3 prior to intubation.) Psychiatric: Tearful Skin Exam: Warm, Dry, Intact ED GENERAL MEDICAL PROCEDURES - Endotracheal Intubation ET Intubation Indication: Airway Protection Preparation: Suction Pre-Oxygenation: Assisted with BVM, 100% FiO2 Anesthesia Meds: Fentanyl, Ketamine, Succinylcholine Placement: Orotracheal Cords Visualized: Yes, Grade 2 Number of Attempts: 2 Confirmed By: CO2 Indicator, Bilateral Breath Sounds, Chest Xray Tube Secured By: By Provider #1 Interpretation Rhythm: NSR [place]: Normal P-Wave: Present QRS: Normal ST-T: Normal QT: Normal Course - Orders/Labs/Meds Orders: Active Orders 24 hr Category Date Time Status CULTURE BLOOD [] Stat Lab 02/09/21 16:57 Results CULTURE BLOOD [] Stat Lab 02/09/21 17:04 Received Sodium Chloride 0.9% [Saline Flush] Med 02/09/21 15:41 Active 10 ml FLUSH ASDIRECTED PRN propofoL [Diprivan 50 ML] 50 ml Med 02/09/21 17:30 Pending IV .TITRATE Blood Culture x2 Reflex Set [OM.PC] Stat Oth 02/09/21 16:46 Ordered Peripheral IV Insertion Adult [OM.PC] Routine Oth 02/09/21 15:41 Ordered Medication Orders Propofol (Diprivan 50 Ml) 50 mls @ 0 mls/hr IV .TITRATE REAGAN; Protocol Sodium Chloride (Sodium Chloride 0.9% 10 Ml Syringe) 10 ml FLUSH ASDIRECTED PRN PRN Reason: Keep Vein Open Labs: Laboratory Tests 02/09/21 02/09/21 02/09/21 Range/Units 15:39 15:39 15:39 WBC 5.7 (4.0-10.0) x10^3/uL RBC 4.15 (4.00-5.50) x10^6/uL Hgb 14.3 (12.0-16.0) g/dL Hct 41.7 (33.0-47.0) % MCV 100.5 H (78.0-93.0) fL MCH 34.5 H (26.0-32.0) pg MCHC 34.3 (32.0-36.0) g/dL RDW Coeff of Delfino 15.3 H (10.0-15.0) % Plt Count 272 (130-400) x10^3/uL Neut % (Auto) 47.6 L (50.0-80.0) % Lymph % (Auto) 41.7 (25.0-50.0) % Wirt % (Auto) 7.2 (2.0-11.0) % Eos % (Auto) 2.8 (0.0-4.0) % Baso % (Auto) 0.7 (0.2-1.2) % PT 10.3 (9.9-12.5) SEC INR 0.9 L (2.0-3.5) APTT (25.6-32.8) SEC Sodium 146 H (136-145) mmol/L Potassium 3.5 (3.5-5.1) mmol/L Chloride 108 H (98-107) mmol/L Carbon Dioxide 26 (21-32) mmol/L Anion Gap 15.5 H (5-15) mmol/L BUN 9 (7-18) mg/dL Creatinine 0.9 (0.55-1.02) mg/dL Est Cr Clr Drug Dosing TNP Estimated GFR (MDRD) > 60 Glucose 93 (70-99) mg/dL Lactic Acid (0.4-2.0) mmol/L Calcium 8.9 (8.5-10.1) mg/dL Corrected Calcium 9.3 (8.5-10.1) mg/dL Magnesium 2.3 (1.8-2.4) mg/dL Total Bilirubin 0.2 (0.2-1.0) mg/dL AST 12 L (15-37) U/L ALT 16 (14-59) U/L Alkaline Phosphatase 83 (46-116) U/L Troponin I High Sens (<=51) ng/L C-Reactive Protein < 0.2 (<=0.9) mg/dL Total Protein 7.0 (6.4-8.2) g/dL Albumin 3.5 (3.4-5.0) g/dL Globulin 3.5 Albumin/Globulin Ratio 1.00 TSH, Ultra Sensitive 0.610 (0.358-3.74) uIU/mL Urine Color (YELLOW) Urine Appearance (CLEAR) Urine pH (5.0-8.0) Ur Specific [place] Urine Protein (NEGATIVE) mg/dL Urine Glucose (UA) (NEGATIVE) mg/dL Urine Ketones (NEGATIVE) mg/dL Urine Occult Blood (NEGATIVE) Urine Nitrite (NEGATIVE) Urine Bilirubin (NEGATIVE) Urine Urobilinogen (0.2) EU/dL Ur Leukocyte Esterase (NEGATIVE) Urine HCG, Qual (NEGATIVE) Urine Opiates Screen (NEGATIVE) Ur Buprenorphine Scrn (NEGATIVE) Ur Oxycodone Screen (NEGATIVE) Urine Methadone Screen (NEGATIVE) Ur Barbiturates Screen (NEGATIVE) Ur Phencyclidine Scrn (NEGATIVE) Ur Amphetamine Screen (NEGATIVE) U Methamphetamines Scrn (NEGATIVE) Urine MDMA Screen (NEGATIVE) U Benzodiazepines Scrn (NEGATIVE) U Cocaine Metab Screen (NEGATIVE) U Marijuana (THC) Screen (NEGATIVE) Ethyl Alcohol 335 H* (0-3) mg/dL SARS CoV-2 RNA Rapid XAVIER (NEGATIVE) 02/09/21 02/09/21 02/09/21 Range/Units 15:39 15:39 15:50 WBC (4.0-10.0) x10^3/uL RBC (4.00-5.50) x10^6/uL Hgb (12.0-16.0) g/dL Hct (33.0-47.0) % MCV (78.0-93.0) fL MCH (26.0-32.0) pg MCHC (32.0-36.0) g/dL RDW Coeff of Delfino (10.0-15.0) % Plt Count (130-400) x10^3/uL Neut % (Auto) (50.0-80.0) % Lymph % (Auto) (25.0-50.0) % Wirt % (Auto) (2.0-11.0) % Eos % (Auto) (0.0-4.0) % Baso % (Auto) (0.2-1.2) % PT (9.9-12.5) SEC INR (2.0-3.5) APTT 22.6 L (25.6-32.8) SEC Sodium (136-145) mmol/L Potassium (3.5-5.1) mmol/L Chloride (98-107) mmol/L Carbon Dioxide (21-32) mmol/L Anion Gap (5-15) mmol/L BUN (7-18) mg/dL Creatinine (0.55-1.02) mg/dL Est Cr Clr Drug Dosing Estimated GFR (MDRD) Glucose (70-99) mg/dL Lactic Acid (0.4-2.0) mmol/L Calcium (8.5-10.1) mg/dL Corrected Calcium (8.5-10.1) mg/dL Magnesium (1.8-2.4) mg/dL Total Bilirubin (0.2-1.0) mg/dL AST (15-37) U/L ALT (14-59) U/L Alkaline Phosphatase (46-116) U/L Troponin I High Sens 6 (<=51) ng/L C-Reactive Protein (<=0.9) mg/dL Total Protein (6.4-8.2) g/dL Albumin (3.4-5.0) g/dL Globulin Albumin/Globulin Ratio TSH, Ultra Sensitive (0.358-3.74) uIU/mL Urine Color (YELLOW) Urine Appearance (CLEAR) Urine pH (5.0-8.0) Ur Specific [place] Urine Protein (NEGATIVE) mg/dL Urine Glucose (UA) (NEGATIVE) mg/dL Urine Ketones (NEGATIVE) mg/dL Urine Occult Blood (NEGATIVE) Urine Nitrite (NEGATIVE) Urine Bilirubin (NEGATIVE) Urine Urobilinogen (0.2) EU/dL Ur Leukocyte Esterase (NEGATIVE) Urine HCG, Qual (NEGATIVE) Urine Opiates Screen (NEGATIVE) Ur Buprenorphine Scrn (NEGATIVE) Ur Oxycodone Screen (NEGATIVE) Urine Methadone Screen (NEGATIVE) Ur Barbiturates Screen (NEGATIVE) Ur Phencyclidine Scrn (NEGATIVE) Ur Amphetamine Screen (NEGATIVE) U Methamphetamines Scrn (NEGATIVE) Urine MDMA Screen (NEGATIVE) U Benzodiazepines Scrn (NEGATIVE) U Cocaine Metab Screen (NEGATIVE) U Marijuana (THC) Screen (NEGATIVE) Ethyl Alcohol (0-3) mg/dL SARS CoV-2 RNA Rapid XAVIER Negative (NEGATIVE) 02/09/21 02/09/21 02/09/21 Range/Units 16:11 16:11 16:11 WBC (4.0-10.0) x10^3/uL RBC (4.00-5.50) x10^6/uL Hgb (12.0-16.0) g/dL Hct (33.0-47.0) % MCV (78.0-93.0) fL MCH (26.0-32.0) pg MCHC (32.0-36.0) g/dL RDW Coeff of Delfino (10.0-15.0) % Plt Count (130-400) x10^3/uL Neut % (Auto) (50.0-80.0) % Lymph % (Auto) (25.0-50.0) % Wirt % (Auto) (2.0-11.0) % Eos % (Auto) (0.0-4.0) % Baso % (Auto) (0.2-1.2) % PT (9.9-12.5) SEC INR (2.0-3.5) APTT (25.6-32.8) SEC Sodium (136-145) mmol/L Potassium (3.5-5.1) mmol/L Chloride (98-107) mmol/L Carbon Dioxide (21-32) mmol/L Anion Gap (5-15) mmol/L BUN (7-18) mg/dL Creatinine (0.55-1.02) mg/dL Est Cr Clr Drug Dosing Estimated GFR (MDRD) Glucose (70-99) mg/dL Lactic Acid (0.4-2.0) mmol/L Calcium (8.5-10.1) mg/dL Corrected Calcium (8.5-10.1) mg/dL Magnesium (1.8-2.4) mg/dL Total Bilirubin (0.2-1.0) mg/dL AST (15-37) U/L ALT (14-59) U/L Alkaline Phosphatase (46-116) U/L Troponin I High Sens (<=51) ng/L C-Reactive Protein (<=0.9) mg/dL Total Protein (6.4-8.2) g/dL Albumin (3.4-5.0) g/dL Globulin Albumin/Globulin Ratio TSH, Ultra Sensitive (0.358-3.74) uIU/mL Urine Color Light yellow (YELLOW) Urine Appearance Clear (CLEAR) Urine pH 6.0 (5.0-8.0) Ur Specific [place] 1.010 Urine Protein Negative (NEGATIVE) mg/dL Urine Glucose (UA) Negative (NEGATIVE) mg/dL Urine Ketones Negative (NEGATIVE) mg/dL Urine Occult Blood Negative (NEGATIVE) Urine Nitrite Negative (NEGATIVE) Urine Bilirubin Negative (NEGATIVE) Urine Urobilinogen 0.2 (0.2) EU/dL Ur Leukocyte Esterase Negative (NEGATIVE) Urine HCG, Qual Negative (NEGATIVE) Urine Opiates Screen Negative (NEGATIVE) Ur Buprenorphine Scrn Negative (NEGATIVE) Ur Oxycodone Screen Negative (NEGATIVE) Urine Methadone Screen Negative (NEGATIVE) Ur Barbiturates Screen Negative (NEGATIVE) Ur Phencyclidine Scrn Negative (NEGATIVE) Ur Amphetamine Screen Negative (NEGATIVE) U Methamphetamines Scrn Negative (NEGATIVE) Urine MDMA Screen Negative (NEGATIVE) U Benzodiazepines Scrn Negative (NEGATIVE) U Cocaine Metab Screen Negative (NEGATIVE) U Marijuana (THC) Screen Negative (NEGATIVE) Ethyl Alcohol (0-3) mg/dL SARS CoV-2 RNA Rapid XAVIER (NEGATIVE) 02/09/21 Range/Units 16:57 WBC (4.0-10.0) x10^3/uL RBC (4.00-5.50) x10^6/uL Hgb (12.0-16.0) g/dL Hct (33.0-47.0) % MCV (78.0-93.0) fL MCH (26.0-32.0) pg MCHC (32.0-36.0) g/dL RDW Coeff of Delfino (10.0-15.0) % Plt Count (130-400) x10^3/uL Neut % (Auto) (50.0-80.0) % Lymph % (Auto) (25.0-50.0) % Wirt % (Auto) (2.0-11.0) % Eos % (Auto) (0.0-4.0) % Baso % (Auto) (0.2-1.2) % PT (9.9-12.5) SEC INR (2.0-3.5) APTT (25.6-32.8) SEC Sodium (136-145) mmol/L Potassium (3.5-5.1) mmol/L Chloride (98-107) mmol/L Carbon Dioxide (21-32) mmol/L Anion Gap (5-15) mmol/L BUN (7-18) mg/dL Creatinine (0.55-1.02) mg/dL Est Cr Clr Drug Dosing Estimated GFR (MDRD) Glucose (70-99) mg/dL Lactic Acid 1.9 (0.4-2.0) mmol/L Calcium (8.5-10.1) mg/dL Corrected Calcium (8.5-10.1) mg/dL Magnesium (1.8-2.4) mg/dL Total Bilirubin (0.2-1.0) mg/dL AST (15-37) U/L ALT (14-59) U/L Alkaline Phosphatase (46-116) U/L Troponin I High Sens (<=51) ng/L C-Reactive Protein (<=0.9) mg/dL Total Protein (6.4-8.2) g/dL Albumin (3.4-5.0) g/dL Globulin Albumin/Globulin Ratio TSH, Ultra Sensitive (0.358-3.74) uIU/mL Urine Color (YELLOW) Urine Appearance (CLEAR) Urine pH (5.0-8.0) Ur Specific [place] Urine Protein (NEGATIVE) mg/dL Urine Glucose (UA) (NEGATIVE) mg/dL Urine Ketones (NEGATIVE) mg/dL Urine Occult Blood (NEGATIVE) Urine Nitrite (NEGATIVE) Urine Bilirubin (NEGATIVE) Urine Urobilinogen (0.2) EU/dL Ur Leukocyte Esterase (NEGATIVE) Urine HCG, Qual (NEGATIVE) Urine Opiates Screen (NEGATIVE) Ur Buprenorphine Scrn (NEGATIVE) Ur Oxycodone Screen (NEGATIVE) Urine Methadone Screen (NEGATIVE) Ur Barbiturates Screen (NEGATIVE) Ur Phencyclidine Scrn (NEGATIVE) Ur Amphetamine Screen (NEGATIVE) U Methamphetamines Scrn (NEGATIVE) Urine MDMA Screen (NEGATIVE) U Benzodiazepines Scrn (NEGATIVE) U Cocaine Metab Screen (NEGATIVE) U Marijuana (THC) Screen (NEGATIVE) Ethyl Alcohol (0-3) mg/dL SARS CoV-2 RNA Rapid XAVIER (NEGATIVE) Meds: Medications Generic Name Dose Route Start Last Admin Trade Name Freq PRN Reason Stop Dose Admin Propofol 50 mls @ 0 mls/hr 02/09/21 17:30 Diprivan 50 Ml IV .TITRATE REAGAN Protocol 10 MCG/KG/MIN Sodium Chloride 10 ml 02/09/21 15:41 Sodium Chloride 0.9% 10 Ml Syringe FLUSH ASDIRECTED PRN Keep Vein Open Discontinued Medications Generic Name Dose Route Start Last Admin Trade Name Freq PRN Reason Stop Dose Admin Fentanyl Confirm 02/09/21 17:52 Fentanyl 100 Mcg/2 Ml Sdv Administered 02/09/21 17:53 Dose 100 mcg .ROUTE .STK-MED ONE Hydromorphone HCl 1 mg 02/09/21 17:40 Hydromorphone 1 Mg/Ml Syringe IVPUSH 02/09/21 17:41 ONETIME ONE Ketamine HCl Confirm 02/09/21 17:53 Ketamine 200 Mg/20 Ml Mdv Administered 02/09/21 17:54 Dose 200 mg .ROUTE .STK-MED ONE Labetalol HCl 20 mg 02/09/21 17:40 Labetalol 20 Mg/4 Ml Syringe IVPUSH 02/09/21 17:41 NOW ONE Protocol Midazolam HCl Confirm 02/09/21 17:53 Midazolam 1 Mg/Ml 2 Ml Sdv Administered 02/09/21 17:54 Dose 4 mg .ROUTE .STK-MED ONE - Radiology Interpretation Free Text/Narrative:: Chest x-ray showed adequate tube placement. CT brain negative for acute pathology CT cervical spine negative for acute pathology Plain film radiographs of pelvis/hip were negative for acute pathology - Re-Assessments/Exams Free Text/Narrative Re-Assessment/Exam: Decision was made to intubate the patient due to decreased LOC. Pt. was maintaining her airway. O2 sat was 100%. Pt. was given fentanyl 100mcg IV, ketamine 120mg, and succinylcholine 120mg IV. Pt. was intubated using the glide scope. Tube was watched when it passed through the cords. When the rigid stylette was removed, the tube tip migrated out of the glottis. She was successfully intubated on the second attempt. ETCO2 was in the mid 40s post intubation. O2 sat did not drop below 95%. Pt. was given versed 4 mg IV and rocuronium 50mg IV. Pt. was sent to CT per request of Dr. Cameron at [facility]. 02/09/21 17:33 Pt. was started on a propofol drip at 10 mcg/kg/min. Departure - Departure Time of Disposition: 17:52 Disposition: Home, Self-Care 01 Clinical Impression: Unresponsive episode, Right hip pain - Discharge Information Referrals: PCP,Unknown [Primary Care Provider] - Forms: Interfacility Transfer EMTALA - Problem List Review Problem List Initiated/Reviewed/Updated: Yes - My Orders Last 24 Hours: My Active Orders 02/09/21 15:41 Sodium Chloride 0.9% [Saline Flush] 10 ml FLUSH ASDIRECTED PRN Peripheral IV Insertion Adult [OM.PC] Routine 02/09/21 16:46 Blood Culture x2 Reflex Set [OM.PC] Stat 02/09/21 16:57 CULTURE BLOOD [BC] Stat 02/09/21 17:04 CULTURE BLOOD [BC] Stat 02/09/21 17:30 propofoL [Diprivan 50 ML] 50 ml IV .TITRATE - Assessment/Plan Last 24 Hours: My Active Orders 02/09/21 15:41 Sodium Chloride 0.9% [Saline Flush] 10 ml FLUSH ASDIRECTED PRN Peripheral IV Insertion Adult [OM.PC] Routine 02/09/21 16:46 Blood Culture x2 Reflex Set [OM.PC] Stat 02/09/21 16:57 CULTURE BLOOD [BC] Stat 02/09/21 17:04 CULTURE BLOOD [BC] Stat 02/09/21 17:30 propofoL [Diprivan 50 ML] 50 ml IV .TITRATE Plan: Pt. was transferred to [facility] in [place]. Dr. Cameron is accepting. Pt. will be transported via [facility] ground ambulance. Continue propofol drip.
[2021-02-09 16:22] LABS: BARBITURATE SCREEN,URINE NEGATIVE (NEGATIVE); BENZODIAZEPINES SCREEN,URINE NEGATIVE (NEGATIVE); METHAMPHETAMINE SCREEN, URINE NEGATIVE (NEGATIVE); THC SCREEN,URINE 50 NG/ML NEGATIVE (NEGATIVE)
--- NOTE | 2021-02-09 17:23 | CR ---
[id number] RAD/RAD Chest PA or AP 1V EXAM: FRONTAL CHEST INDICATION: TRAUMA CODE, POST INTUBATION. COMPARISON: January 14, 2021. DISCUSSION: Endotracheal tube tip about 52 mm above the manjinder. Nasogastric tube tip to at least the gastroesophageal junction, but beyond the [id number] of this study. Normal heart size. Clear lungs. Right axillary clips. IMPRESSION: 1. Endotracheal tube tip in satisfactory position. Alec Amaya MD 02/09/21 [id number] Thank you for allowing us to participate in the care of your patient.
[2021-02-09] MEDS ORDERED: propofoL 50 ML IV SCH (17:30)
[2021-02-09] MEDS ORDERED: HYDROmorphone 1 MG/ML Syringe IVPUSH ONE (17:40)
[2021-02-09] MEDS ORDERED: Labetalol 20 MG/4 ML Syringe IVPUSH ONE (17:40)
--- NOTE | 2021-02-09 17:41 | CT ---
[id number] CT/CT Head WO IV EXAM: NONCONTRAST HEAD CT INDICATION: TRAUMA CODE, DECREASED LOC, FELL, INTUBATED. COMPARISON: January 14, 2021. DISCUSSION: There is mild generalized atrophy. The steen and white matter are normal in attenuation. No mass effect or midline shift. No acute hemorrhage or extra-axial fluid collection. No acute territorial infarct is identified. A limited look at the orbits and paranasal sinuses is unremarkable. Unchanged 35 x 8 mm left frontal exostosis. Bilateral nasal passage fluid. IMPRESSION: 1. No acute findings. Alec Amaya MD 02/09/21 [id number] Thank you for allowing us to participate in the care of your patient.
--- NOTE | 2021-02-09 17:44 | CT ---
[id number] CT/CT Cervical Spine WO IV EXAM: NONCONTRAST CERVICAL SPINE CT INDICATION: FELL. COMPARISON: January 14, 2021 DISCUSSION: The vertebral bodies are normal in height and alignment. No fracture or suspicious osseous lesion is identified. Moderate disc degeneration at C6-C7 with milder changes at C5-C6. Mild scattered facet arthropathy. Partially imaged nasogastric and endotracheal tubes. IMPRESSION: 1. No evidence of acute cervical spine trauma. Alec Amaya MD 02/09/21 [id number] Thank you for allowing us to participate in the care of your patient.
--- NOTE | 2021-02-09 17:45 | CR ---
[id number] RAD/RAD Pelvis W Right Lateral Hip EXAM: RAD Pelvis W Right Lateral Hip INDICATION: HIP PAIN. COMPARISON: January 14, 2021. FINDINGS: Interval reduction of a right hip dislocation. Bilateral hip arthroplasties without evident hardware complication. No acute fracture or dislocation is identified. Lower lumbar spondylosis. IMPRESSION: 1. No acute findings. Alec Amaya MD 02/09/21 [id number] Thank you for allowing us to participate in the care of your patient.
[2021-02-09] MEDS ORDERED: fentaNYL 100 MCG/2 ML SDV ONE (17:52)
[2021-02-09] MEDS ORDERED: Midazolam 1 MG/ML 2 ML SDV ONE (17:53)
[2021-02-09] MEDS ORDERED: Ketamine 200 MG/20 ML MDV ONE (17:53)
== END 2021-02-09 17:40 | disposition short-term general hospital (02) ==
LOC: VM.ED 15:29
DX: M25.551 Pain in right hip (principal); R40.4 Transient alteration of awareness; Z20.822 Contact with and (suspected) exposure to COVID-19
CPT/HCPCS: 31500; 36415; 70450; 71045; 72125; 80053; 80305-QW; 80307; 81003; 81025; 83605; 83735; 84443; 84484; 85025; 85610; 85730; 86140; 87040; 93010; 99285; 99285-25; U0002

== ENCOUNTER 2021-02-11 02:00 | Emergency (ER) | payer BC ==
[2021-02-11] MEDS ORDERED: Sodium Chloride 0.9% 10 ML Syringe FLUSH PRN (02:06)
[2021-02-11] MEDS ORDERED: fentaNYL 100 MCG/2 ML SDV IVPUSH ONE (02:09)
--- NOTE | 2021-02-11 02:16 | EDM.PDOC ---
ED HPI GENERAL MEDICAL PROBLEM - General Stated Complaint: hip dislocation Time Seen by Provider: 02/11/21 02:00 Source of Information: Reports: Patient, EMS History Limitations: Reports: No Limitations - History of Present Illness INITIAL COMMENTS - FREE TEXT/NARRATIVE: Patient comes emergency department today from home with complaints of her right hip being dislocated. This patient had a right total hip arthroplasty on 10-19-20. She has had multiple dislocations reviewing her chart it appears to be about 6 since that time. Most recently she was seen in the emergency department on 02-09-21 where she had an altered mental status decreased level of consciousness and quite high alcohol level following a fall at home and concerns of right hip dislocation. She was subsequently RSI and intubated due to airway protection and she did have a hip dislocation at that time. She was transferred to [facility] in [place]. She was discharged on 02-10-21 from [place]. She was told to use her cane in an abduction brace which she has not been since she has been discharged home today. She relates early this afternoon somewhere between 3-4 pm she was ambulating outside when suddenly her hip gave out and she fell to the ground. She did not hit her head. She had no loss conscious. She has no head neck or back pain. She had severe pain in her right hip after it gave out and she fell. She had to crawl across the floor to get over to the phone and it took her multiple hours to do so. She presents to the emergency department about 11 hours later with complaints of severe right hip pain. Again she has no head neck or back pain. No chest pain no shortness of breath or difficulty breathing. She had no weakness dizziness lightheadedness palpitations or syncope prior to her fall. She relates that her right hip gave out and she fell to the ground. She denies any alcohol usage today. She has not been wearing her brace nor walking with a cane as she is supposed to. [place] She denies alcohol usage today. Right Hip Pain Score (Numeric/FACES): 10 - Related Data Allergies Allergy/AdvReac Type Severity Reaction Status Date / Time fluoxetine HCl [From Prozac] Allergy Swelling Verified 02/09/21 23:20 Home Meds: Home Meds QUEtiapine [SEROquel] 25 mg PO BID PRN 08/20/18 [History] QUEtiapine [SEROquel] 50 mg PO BEDTIME 08/20/18 [History] Mirtazapine 1 tab PO BEDTIME 01/17/19 [History] ALPRAZolam [Alprazolam] 0.25 mg PO TID PRN 08/15/19 [History] DULoxetine HCl [Duloxetine HCl] 60 mg PO BEDTIME 30 Days #30 capsule. 12/01/19 [Rx] DULoxetine [Cymbalta] 30 mg PO DAILY 12/09/20 [History] Gabapentin [Neurontin] 600 mg PO TID 12/09/20 [History] Hydrocodone/Acetaminophen [Hydrocodone-Acetamin 5-325 mg] 1 each PO DAILY 12/09/20 [History] Levothyroxine 150 mcg PO ACBREAKFAST 12/09/20 [History] Potassium Chloride 20 meq PO DAILY 12/09/20 [History] atorvaSTATin [Lipitor] 20 mg PO DAILY 12/09/20 [History] Past Medical History Cardiovascular History: Reports: High Cholesterol, Other (See Below) Other Cardiovascular History: REcent hypokalemia and in ER Gastrointestinal History: Reports: Chronic Diarrhea, GERD, Inflammatory Bowel Disease 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 Restless leg SX Psychiatric History: Reports: Addiction, Anxiety, Depression, Panic Attack Other Psychiatric History: Tobacco use. HX alcohol abuse Endocrine/Metabolic History: Reports: Hypothyroidism Oncologic (Cancer) History: Reports: Breast Other Oncologic History: Family HX colon CA - Infectious Disease History Infectious Disease History: Reports: None - Past Surgical History Other HEENT Surgeries/Procedures: septoplasty GI Surgical History: Reports: Colonoscopy Female Surgical History: Reports: Section Musculoskeletal Surgical History: Reports: Hip Replacement, Knee Replacement, Shoulder Surgery Other Musculoskeletal Surgeries/Procedures:: bilat. wrist surgery Oncologic Surgical History: Reports: Lumpectomy Social & Family History - Caffeine Use Caffeine Use: Reports: Soda Review of Systems - Review of Systems Review Of Systems: Comprehensive ROS is negative, except as noted in HPI. ED EXAM, GENERAL - Physical Exam Exam: See Below Exam Limited By: No Limitations General Appearance: Alert, WD/WN, Moderate Distress Head: Atraumatic, Normocephalic Neck: Normal Inspection, Supple, Non-Tender. No: Tender Lateral, Tender Midline Respiratory/Chest: No Respiratory Distress, Lungs Clear, Normal Breath Sounds, No Accessory Muscle Use, Chest Non-Tender Cardiovascular: Normal Peripheral Pulses, Regular Rate, Rhythm Peripheral Pulses: 2+: Posterior Tibial (L), Posterior Tibial (R), Dorsalis Pedis (L), Dorsalis Pedis (R) GI/Abdominal: Normal Bowel Sounds, Soft, Non-Tender, Pelvis Stable (Female) Exam: Deferred Rectal (Female) Exam: Deferred Back Exam: Normal Inspection, Full Range of Motion. No: Paraspinal Tenderness, Vertebral Tenderness Extremities: Normal Capillary Refill. No: Normal Inspection (Her right lower extremity is shortened and internally rotated. She has good CMS.) Neurological: Alert, Oriented, Normal Cognition, No Motor/Sensory Deficits Psychiatric: Anxious Skin Exam: Warm, Dry, Intact, Normal Color, No Rash Course - Vital Signs Last Recorded V/S: Last Vital Signs Temp 98.3 F 02/11/21 02:00 Pulse 81 02/11/21 03:28 Resp 30 H 02/11/21 02:00 BP 135/84 02/11/21 02:00 Pulse Ox 93 L 02/11/21 03:28 - Orders/Labs/Meds Orders: Active Orders 24 hr Category Date Time Status Hip Min 2V or 3V Rt [CR] Stat Exams 02/11/21 02:10 Taken Sodium Chloride 0.9% [Saline Flush] Med 02/11/21 02:06 Active 10 ml FLUSH ASDIRECTED PRN Peripheral IV Insertion Adult [OM.PC] Stat Oth 02/11/21 02:06 Ordered Medication Orders Sodium Chloride (Sodium Chloride 0.9% 10 Ml Syringe) 10 ml FLUSH ASDIRECTED PRN PRN Reason: Keep Vein Open Labs: Laboratory Tests 02/11/21 02/11/21 02/11/21 Range/Units 02:25 02:25 02:25 WBC 8.6 (4.0-10.0) x10^3/uL RBC 4.12 (4.00-5.50) x10^6/uL Hgb 14.2 (12.0-16.0) g/dL Hct 41.7 (33.0-47.0) % MCV 101.2 H (78.0-93.0) fL MCH 34.5 H (26.0-32.0) pg MCHC 34.1 (32.0-36.0) g/dL RDW Coeff of Delfino 15.5 H (10.0-15.0) % Plt Count 300 (130-400) x10^3/uL Neut % (Auto) 74.8 (50.0-80.0) % Lymph % (Auto) 19.5 L (25.0-50.0) % Calhoun % (Auto) 4.3 (2.0-11.0) % Eos % (Auto) 0.8 (0.0-4.0) % Baso % (Auto) 0.6 (0.2-1.2) % Sodium 148 H (136-145) mmol/L Potassium 3.3 L (3.5-5.1) mmol/L Chloride 108 H (98-107) mmol/L Carbon Dioxide 28 (21-32) mmol/L Anion Gap 15.3 H (5-15) mmol/L BUN 11 (7-18) mg/dL Creatinine 0.9 (0.55-1.02) mg/dL Est Cr Clr Drug Dosing 71.45 mL/min Estimated GFR (MDRD) > 60 Glucose 113 H (70-99) mg/dL Calcium 8.7 (8.5-10.1) mg/dL Corrected Calcium 8.9 (8.5-10.1) mg/dL Magnesium 2.0 (1.8-2.4) mg/dL Total Bilirubin 0.3 (0.2-1.0) mg/dL AST 17 (15-37) U/L ALT 23 (14-59) U/L Alkaline Phosphatase 97 (46-116) U/L Creatine Kinase 70 (26-192) U/L Total Protein 7.6 (6.4-8.2) g/dL Albumin 3.8 (3.4-5.0) g/dL Globulin 3.8 Albumin/Globulin Ratio 1.00 Ethyl Alcohol 176 H (0-3) mg/dL Meds: Medications Generic Name Dose Route Start Last Admin Trade Name Freq PRN Reason Stop Dose Admin Sodium Chloride 10 ml 02/11/21 02:06 Sodium Chloride 0.9% 10 Ml Syringe FLUSH ASDIRECTED PRN Keep Vein Open Discontinued Medications Generic Name Dose Route Start Last Admin Trade Name Freq PRN Reason Stop Dose Admin Fentanyl 100 mcg 02/11/21 02:09 02/11/21 02:29 Fentanyl 100 Mcg/2 Ml Sdv IVPUSH 02/11/21 02:10 100 mcg ONETIME ONE Administration Hydromorphone HCl 1 mg 02/11/21 03:17 02/11/21 03:24 Hydromorphone 1 Mg/Ml Syringe IVPUSH 02/11/21 03:18 1 mg ONETIME ONE Administration Orphenadrine Citrate 60 mg 02/11/21 02:43 02/11/21 03:02 Orphenadrine 60 Mg/2 Ml Inj IV 02/11/21 02:44 60 mg NOW STA Administration - Radiology Interpretation Free Text/Narrative:: X-ray of the right hip initially reviewed extemporaneously by myself shows a superiolateral dislocation of the right total hip arthroplasty. No gross bony deformity. Hardware appears intact other than dislocated Xray of the hip per radiology dislocated right MONICO superolateral dislocation. - Re-Assessments/Exams Free Text/Narrative Re-Assessment/Exam: 02/11/21 03:29 IV was established. Labs were drawn. Fentanyl 100 mcg IV push for pain control. Although the patient denies using alcohol today her alcohol level is 176. She continues to have quite a bit of muscle spasm she was given Norflex IV as well as Dilaudid 1 mg IV push. Initial review of the x-ray shows a superolateral dislocation without any hardware fracture or bony deformity. We did not have anesthesia on tonight and a hip dislocation at this amount requires deep sedation with typically propofol we do not have a INJECTION MOLDER available to complete this reduction. I called and spoke with Dr. Frances at [facility] in [place]. HPI ER COURSE findings and concerns were relayed to Dr. Frances. Their questions were answered and they accepted the patient in transfer at this time. I discussed the plan of care with the patient. She is comfortable with this plan and her questions answered. Departure - Departure Time of Disposition: 03:41 Disposition: DC/Tfer to [facility] 02 Clinical Impression: Failure of right total hip arthroplasty with dislocation of hip Qualifiers: Encounter type: initial encounter Qualified Code(s): T84.020A - Dislocation of internal right hip prosthesis, initial encounter - Discharge Information Forms: Interfacility Transfer EMTALA Sepsis Event Note (ED) - Focused Exam Vital Signs: Vital Signs Temp Pulse Resp BP Pulse Ox 02/11/21 03:28 81 93 L 02/11/21 02:00 98.3 F 94 30 H 135/84 95 - My Orders Last 24 Hours: My Active Orders 02/11/21 02:06 Sodium Chloride 0.9% [Saline Flush] 10 ml FLUSH ASDIRECTED PRN Peripheral IV Insertion Adult [OM.PC] Stat 02/11/21 02:10 Hip Min 2V or 3V Rt [CR] Stat - Assessment/Plan Last 24 Hours: My Active Orders 02/11/21 02:06 Sodium Chloride 0.9% [Saline Flush] 10 ml FLUSH ASDIRECTED PRN Peripheral IV Insertion Adult [OM.PC] Stat 02/11/21 02:10 Hip Min 2V or 3V Rt [CR] Stat
[2021-02-11] MEDS ORDERED: Orphenadrine 60 MG/2 ML Inj IV STA (02:43)
[2021-02-11 02:51] VITALS: BP 135/84
[2021-02-11 03:01] LABS: CHLORIDE,CL 108 mmol/L (98-107); SODIUM,NA 148 mmol/L (136-145)
[2021-02-11 03:02] LABS: ANION GAP 15.3 mmol/L (5-15)
[2021-02-11] MEDS ORDERED: HYDROmorphone 1 MG/ML Syringe IVPUSH ONE (03:17)
[2021-02-11 03:29] VITALS: PULSE 81
--- NOTE | 2021-02-11 08:26 | CR ---
[id number] RAD/RAD Hip Right 2-3V EXAM: RAD Hip Right 2-3V INDICATION: REOCCURRING HIP DISPLACEMENT COMPARISON: February 09, 2021. DISCUSSION: Previous right hip arthroplasty. Superior dislocation of the femoral head component relative to the acetabular cup. No other evident hardware complication. No fracture or other osseous lesion is seen. Incidental contralateral arthroplasty seen on the lateral view. IMPRESSION: 1. Superior dislocation of the right hip. Alec Amaya MD 02/11/21 0825 Thank you for allowing us to participate in the care of your patient.
== END 2021-02-11 04:19 | disposition short-term general hospital (02) ==
LOC: VM.ED 02:00
DX: T84.020A Dislocation of internal right hip prosthesis, initial encounter (principal); E03.9 Hypothyroidism, unspecified; Z88.8 Allergy status to other drugs, medicaments and biological substances; Z79.899 Other long term (current) drug therapy; W19.XXXA Unspecified fall, initial encounter; Y92.009 Unspecified place in unspecified non-institutional (private) residence as the place of occurrence of the external cause
CPT/HCPCS: 80053; 80307; 82550; 83735; 85025; 96374; 96375; 99284; 99285-25; J1170; J2360; J3010

== ENCOUNTER 2021-02-20 17:25 | Emergency (ER) | payer BC ==
[2021-02-20] MEDS ORDERED: Sodium Chloride 0.9% 1,000 ML IV ONE (17:35)
--- NOTE | 2021-02-20 17:54 | EDM.PDOC ---
ED HPI GENERAL MEDICAL PROBLEM - General Chief Complaint: Lower Extremity Injury/Pain Stated Complaint: FELL Time Seen by Provider: 02/20/21 17:40 Source of Information: Reports: Patient, EMS, Family, Old Records History Limitations: Reports: Intoxication - History of Present Illness INITIAL COMMENTS - FREE TEXT/NARRATIVE: Patient is brought in by EMS after being found by her parents today. She is a known alcoholic and lives alone. She fell at an unknown hour yesterday, but states she was able to get to her vodka and has drank a liter of this since her fall. Complains of right lower and left lower extremity pain. States it is not necessarily new but her only source of pain. Per EMS she has a history of right hip dislocation and has had to have surgery in the last two weeks due to inability to relocate it without open procedure. She has been home a few days and drinking daily. Blood glucose was normal enroute. Not on any blood thinners known to patient and EMS. Has not eaten in the last 12 hours Onset: Unknown/Unsure Onset Date: 02/19/21 Duration: Constant Location: Reports: Lower Extremity, Left, Lower Extremity, Right Quality: Reports: Ache Severity: Moderate Improves with: Reports: None Worsens with: Reports: Movement Associated Symptoms: Reports: Confusion Right Hip Pain Score (Numeric/FACES): 5 - Related Data Allergies Allergy/AdvReac Type Severity Reaction Status Date / Time fluoxetine HCl [From Prozac] Allergy Swelling Verified 02/20/21 18:23 Home Meds: Home Meds QUEtiapine [SEROquel] 50 mg PO BEDTIME 08/20/18 [History] Mirtazapine 1 tab PO BEDTIME 01/17/19 [History] ALPRAZolam [Alprazolam] 0.25 mg PO TID PRN 08/15/19 [History] DULoxetine HCl [Duloxetine HCl] 60 mg PO BEDTIME 30 Days #30 capsule. 12/01/19 [Rx] DULoxetine [Cymbalta] 30 mg PO DAILY 12/09/20 [History] Gabapentin [Neurontin] 600 mg PO TID 12/09/20 [History] Levothyroxine 150 mcg PO ACBREAKFAST 12/09/20 [History] Potassium Chloride 20 meq PO DAILY 12/09/20 [History] atorvaSTATin [Lipitor] 20 mg PO DAILY 12/09/20 [History] Past Medical History Cardiovascular History: Reports: High Cholesterol, Other (See Below) Other Cardiovascular History: REcent hypokalemia and in ER Gastrointestinal History: Reports: Chronic Diarrhea, GERD, Inflammatory Bowel Disease RECEPTION History: Reports: Musculoskeletal History: Reports: Back Pain, Chronic, Fibromyalgia, Osteoarthritis, Osteoporosis Other Musculoskeletal History: Bilateral shoulder pain. Restless leg SX Psychiatric History: Reports: Addiction, Anxiety, Depression, Panic Attack Other Psychiatric History: Tobacco use. HX alcohol abuse Endocrine/Metabolic History: Reports: Hypothyroidism Oncologic (Cancer) History: Reports: Breast Other Oncologic History: Family HX colon CA - Infectious Disease History Infectious Disease History: Reports: None - Past Surgical History Other HEENT Surgeries/Procedures: septoplasty GI Surgical History: Reports: Colonoscopy Female Surgical History: Reports: Section Musculoskeletal Surgical History: Reports: Hip Replacement, Knee Replacement, Shoulder Surgery Other Musculoskeletal Surgeries/Procedures:: bilat. wrist surgery Oncologic Surgical History: Reports: Lumpectomy Social & Family History - Family History Family Medical History: No Pertinent Family History - Caffeine Use Caffeine Use: Reports: Soda Review of Systems - Review of Systems Review Of Systems: See Below Constitutional: Reports: Weakness Eyes: Reports: No Symptoms Ears: Reports: No Symptoms Nose: Reports: No Symptoms Mouth/Throat: Reports: No Symptoms Respiratory: Reports: No Symptoms. Denies: Shortness of Breath, Pleuritic Chest Pain Cardiovascular: Reports: No Symptoms. Denies: Chest Pain GI/Abdominal: Reports: Decreased Appetite. Denies: Abdominal Pain, Diarrhea, Nausea, Vomiting Genitourinary: Denies: Dysuria Musculoskeletal: Reports: Neck Pain (chronically), Leg Pain (right hip and both lower extremities) Skin: Reports: Wound (right hip) Neurological: Reports: Confusion Psychiatric: Reports: Confusion, Depression, Anxiety, Agitation ED EXAM, GENERAL - Physical Exam Exam: See Below Exam Limited By: Intoxication General Appearance: Alert, Anxious, Mild Distress, Other (smells of etoh) Eye Exam: Bilateral Eye: Nystagmus (tracks finger well but with nystagmus) Ears: Normal External Exam, Hearing Grossly Normal Nose: Normal Inspection Throat/Mouth: Normal Inspection, Normal Lips, Normal Oropharynx, Normal Voice Head: Atraumatic, Normocephalic Neck: Normal Inspection, Supple, Non-Tender, Full Range of Motion Respiratory/Chest: No Respiratory Distress, Lungs Clear Cardiovascular: Normal Peripheral Pulses, No Murmur, Tachycardia GI/Abdominal: Normal Bowel Sounds, Soft, Non-Tender (Female) Exam: Deferred Extremities: Other (right hip with surgical dressing in place, no dehiscence, no signs of infection. small abrasion right medial knee, well healed bilateral knee incisions. Some pain to compression of the right lower leg, no deformity of swelling noted. No pain to internal or external rotation of the hips. ) Neurological: Alert, Disoriented, Memory Loss Remote Events, Memory Loss Recent Events (intoxicated, can answer questions about fall and pain, unsure of day, date, year. Moves all extremities freely) Psychiatric: Anxious, Depressed Mood Skin Exam: Wound/Incision (right lateral hip) Course - Vital Signs Last Recorded V/S: Last Vital Signs Temp 37.1 C 02/20/21 17:28 Pulse 89 02/20/21 18:34 Resp 18 02/20/21 18:34 BP 117/63 02/20/21 18:34 Pulse Ox 98 02/20/21 18:34 - Orders/Labs/Meds Orders: Active Orders 24 hr Category Date Time Status Hip Min 2V or 3V w Pelvis Rt [CR] Stat Exams 02/20/21 17:34 Taken Tibia Fibula Rt [CR] Stat Exams 02/20/21 17:34 Taken Labs: Laboratory Tests 02/20/21 02/20/21 Range/Units 17:45 17:45 WBC 6.3 (4.0-10.0) x10^3/uL RBC 3.57 L (4.00-5.50) x10^6/uL Hgb 12.0 D (12.0-16.0) g/dL Hct 35.8 (33.0-47.0) % MCV 100.3 H (78.0-93.0) fL MCH 33.6 H (26.0-32.0) pg MCHC 33.5 (32.0-36.0) g/dL RDW Coeff of Delfino 15.2 H (10.0-15.0) % Plt Count 406 H D (130-400) x10^3/uL Neut % (Auto) 60.5 (50.0-80.0) % Lymph % (Auto) 27.5 (25.0-50.0) % Lares % (Auto) 8.0 (2.0-11.0) % Eos % (Auto) 3.2 (0.0-4.0) % Baso % (Auto) 0.8 (0.2-1.2) % Sodium 143 (136-145) mmol/L Potassium 3.8 (3.5-5.1) mmol/L Chloride 106 (98-107) mmol/L Carbon Dioxide 24 (21-32) mmol/L Anion Gap 16.8 H (5-15) mmol/L BUN 8 (7-18) mg/dL Creatinine 0.7 (0.55-1.02) mg/dL Est Cr Clr Drug Dosing TNP Estimated GFR (MDRD) > 60 Glucose 106 H (70-99) mg/dL Calcium 8.5 (8.5-10.1) mg/dL Corrected Calcium 9.3 (8.5-10.1) mg/dL Magnesium 1.8 (1.8-2.4) mg/dL Total Bilirubin 0.4 (0.2-1.0) mg/dL AST 15 (15-37) U/L ALT 18 (14-59) U/L Alkaline Phosphatase 82 (46-116) U/L Creatine Kinase 42 (26-192) U/L Total Protein 7.7 (6.4-8.2) g/dL Albumin 3.0 L (3.4-5.0) g/dL Globulin 4.7 Albumin/Globulin Ratio 0.64 Ethyl Alcohol 271 H (0-3) mg/dL Meds: Medications Discontinued Medications Generic Name Dose Route Start Last Admin Trade Name Griffinq PRN Reason Stop Dose Admin Sodium Chloride 1,000 mls @ 999 mls/hr 02/20/21 17:35 02/20/21 17:50 Normal Saline IV 02/20/21 18:35 999 mls/hr ONETIME ONE Administration - Radiology Interpretation Free Text/Narrative:: CT head with no acute findings pelvis and right hip without any new changes, normal tib/fib interpreted by Radiology - Re-Assessments/Exams Free Text/Narrative Re-Assessment/Exam: 02/20/21 17:58 Patient is intoxicated, had recent surgery, a poor historian, and complains of fall with right lower extremity pain. Will get ct head due to ams and alcohol, pelvis with right hip, right tib fib x-rays, check labs and hydrate./ Iv in place from EMS 02/20/21 19:23 las are normal. call to parents to come get her, does not meet criteria for admission Departure - Departure Time of Disposition: 19:25 Disposition: Home, Self-Care 01 Clinical Impression: Alcohol abuse Fall Qualifiers: Encounter type: initial encounter Qualified Code(s): W19.XXXA - Unspecified fall, initial encounter - Discharge Information *PRESCRIPTION DRUG MONITORING PROGRAM REVIEWED*: No *COPY OF PRESCRIPTION DRUG MONITORING REPORT IN PATIENT DEREK: No Instructions: Alcohol Use Disorder, Alcohol Abuse and Dependence Information, Adult Referrals: Olivia Butler, [Primary Care Provider] - Forms: ED Department Discharge Additional Instructions: Testing today did not reveal any abnormalities other than alcohol intoxication. Ct of the head, and x-rays of the hip, pelvis and right leg are normal. Seek help to stop drinking. Blood alcohol is 271 today. Sepsis Event Note (ED) - Evaluation Sepsis Screening Result: No Definite Risk - Focused Exam Vital Signs: Vital Signs Temp Pulse Resp BP Pulse Ox 02/20/21 18:34 89 18 117/63 98 02/20/21 17:53 90 18 105/51 L 97 02/20/21 17:31 96 20 113/64 98 02/20/21 17:28 37.1 C 96 20 113/64 98 - My Orders Last 24 Hours: My Active Orders 02/20/21 17:34 Hip Min 2V or 3V w Pelvis Rt [CR] Stat Tibia Fibula Rt [CR] Stat - Assessment/Plan Last 24 Hours: My Active Orders 02/20/21 17:34 Hip Min 2V or 3V w Pelvis Rt [CR] Stat Tibia Fibula Rt [CR] Stat
[2021-02-20 18:18] LABS: ANION GAP 16.8 mmol/L (5-15); CHLORIDE,CL 106 mmol/L (98-107); SODIUM,NA 143 mmol/L (136-145)
[2021-02-20 19:18] VITALS: BP 117/63; PULSE 89
--- NOTE | 2021-02-20 19:21 | CT ---
[id number] CT/CT Head WO IV EXAM: CT Head WO IV CLINICAL DATA: FALL, ALTERED, ETOH COMPARISON STUDY: None FINDINGS: No intracranial hemorrhage, extra-axial fluid collection, mass, or acute ischemia. Generalized parenchymal atrophy with scattered areas of nonspecific white matter disease, commonly seen as sequela of chronic microvascular ischemia. Soft tissues are unremarkable. Paranasal sinuses and mastoid air cells are clear. Benign-appearing calcified lesion arising from the left frontal calvarium. IMPRESSION: No acute intracranial findings. Ryan Sorenson DO 02/20/21 [id number] Thank you for allowing us to participate in the care of your patient.
--- NOTE | 2021-02-20 19:22 | CR ---
[id number] RAD/RAD Tibia Fibula Right EXAM: 3 VIEWS RIGHT TIB-FIB. INDICATION: FALL COMPARISON: None. DISCUSSION: No fracture, dislocation or other osseous abnormality. Postsurgical changes following total right knee arthroplasty. No evidence of acute hardware failure or loosening. IMPRESSION: 1. As above. Ryan Sorenson DO 02/20/21 [id number] Thank you for allowing us to participate in the care of your patient.
--- NOTE | 2021-02-20 19:22 | CR ---
[id number] RAD/RAD Pelvis 1V W 2V Right Hip EXAM: 3 VIEWS RIGHT HIP. INDICATION: FALL, RECENT SURGERY COMPARISON: None. DISCUSSION: No fracture, dislocation or other acute osseous abnormality. Post surgical changes following bilateral hip arthroplasties. No evidence of acute hardware failure or loosening. The right prosthesis remains in articulatory alignment. IMPRESSION: 1. As above. Ryan Sorenson DO 02/20/21 [id number] Thank you for allowing us to participate in the care of your patient.
== END 2021-02-20 20:00 | disposition home or self-care (01) ==
LOC: VM.ED 17:25
DX: F10.229 Alcohol dependence with intoxication, unspecified (principal); Y90.8 Blood alcohol level of 240 mg/100 ml or more; E78.00 Pure hypercholesterolemia, unspecified; E03.9 Hypothyroidism, unspecified; Z88.8 Allergy status to other drugs, medicaments and biological substances; Z79.899 Other long term (current) drug therapy
CPT/HCPCS: 36415; 70450; 73502; 73590; 80053; 80307; 82550; 83735; 85025; 99284; 99285; J7030

== ENCOUNTER 2021-07-24 20:46 | Emergency (ER) | payer BC ==
[2021-07-24] MEDS ORDERED: Aspirin 81 MG Tab.Chew PO ONE (20:50)
[2021-07-24 21:21] VITALS: PULSE 92
[2021-07-24] MEDS ORDERED: Orphenadrine 60 MG/2 ML Inj IM ONE ×2 (21:24→22:40)
--- NOTE | 2021-07-24 21:30 | EDM.PDOC ---
ED HPI GENERAL MEDICAL PROBLEM - General Chief Complaint: Chest Pain Stated Complaint: CHEST PAIN Time Seen by Provider: 07/24/21 20:55 Source of Information: Reports: Patient History Limitations: Reports: No Limitations - History of Present Illness INITIAL COMMENTS - FREE TEXT/NARRATIVE: Patient presents ER night with a substernal sharp burning chest pain is worse with inspiration. Patient states the pain woke her up today at 230 and has been ongoing since. Patient states she was out shoveling snow this morning but only shoveled for a few minutes and then went and went to bed. Patient denies any shortness of breath but states it is painful to breathe she denies any nausea or vomiting or diaphoresis states she is never had any heart or cardiac issues. She does have a significant history for EtOH smoking hyperlipidemia. Her twin sister also has a thoracic aneurysm Father has cardiac issues but she is unsure what She rates pain about a 8 out of 10 with inspiration and it goes down to 0 as long when she is not taking a deep breath. She denies any pain radiation she denies any lightheadedness dizziness or near syncope Onset: Today, Sudden Duration: Hour(s): Location: Reports: Chest Quality: Reports: Burning, Pressure, Stabbing Improves with: Reports: None Worsens with: Reports: Breathing Associated Symptoms: Reports: No Other Symptoms Treatments ELECTION SUPERVISOR: Reports: Acetaminophen, NSAIDS, Other (see below) Other Treatments ELECTION SUPERVISOR: Ibuprofen, Aleve, Motrin mid sternal chest Pain Score (Numeric/FACES): 7 - Related Data Allergies Allergy/AdvReac Type Severity Reaction Status Date / Time fluoxetine HCl [From Prozac] Allergy Swelling Verified 07/24/21 21:21 Home Meds: Home Meds QUEtiapine [SEROquel] 25 mg PO BEDTIME 08/20/18 [History] Mirtazapine 1 tab PO BEDTIME 01/17/19 [History] ALPRAZolam [Alprazolam] 0.25 mg PO TID PRN 08/15/19 [History] DULoxetine HCl [Duloxetine HCl] 60 mg PO BEDTIME 30 Days #30 capsule. 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 Restless leg SX Psychiatric History: Reports: Addiction, Anxiety, Depression, Panic Attack Other Psychiatric History: Tobacco use. HX alcohol abuse Endocrine/Metabolic History: Reports: Hypothyroidism Oncologic (Cancer) History: Reports: Breast Other Oncologic History: Family HX colon CA - Infectious Disease History Infectious Disease History: Reports: None - Past Surgical History Other HEENT Surgeries/Procedures: septoplasty GI Surgical History: Reports: Colonoscopy Female Surgical History: Reports: Section Musculoskeletal Surgical History: Reports: Hip Replacement, Knee Replacement, Shoulder Surgery Other Musculoskeletal Surgeries/Procedures:: bilat. wrist surgery Oncologic Surgical History: Reports: Lumpectomy Social & Family History - Family History Family Medical History: No Pertinent Family History - Caffeine Use Caffeine Use: Reports: Soda ED ROS GENERAL - Review of Systems Review Of Systems: See Below Constitutional: Reports: No Symptoms HEENT: Reports: No Symptoms Respiratory: Reports: No Symptoms, Pleuritic Chest Pain Cardiovascular: Reports: Chest Pain. Denies: Blood Pressure Problem, Dyspnea on Exertion, Edema, Lightheadedness, Syncope Endocrine: Reports: No Symptoms GI/Abdominal: Reports: No Symptoms : Reports: No Symptoms Musculoskeletal: Reports: No Symptoms Skin: Reports: No Symptoms Neurological: Reports: No Symptoms Psychiatric: Reports: No Symptoms Hematologic/Lymphatic: Reports: No Symptoms Immunologic: Reports: No Symptoms ED EXAM, GENERAL - Physical Exam Exam: See Below Exam Limited By: No Limitations General Appearance: Alert, WD/WN, No Apparent Distress Eye Exam: Bilateral Eye: EOMI, Normal Inspection, PERRL Ears: Hearing Grossly Normal Nose: Normal Inspection, Normal Mucosa, No Blood Throat/Mouth: Normal Inspection, Normal Lips, Normal Teeth, Normal Gums, Normal Oropharynx, Normal Voice, No Airway Compromise Head: Atraumatic, Normocephalic Neck: Normal Inspection, Supple, Non-Tender, Full Range of Motion Respiratory/Chest: No Respiratory Distress, Lungs Clear, Normal Breath Sounds, No Accessory Muscle Use, Other (Positive mild tenderness palpation over the sternum with reproducible pain). No: Chest Non-Tender Cardiovascular: Normal Peripheral Pulses, Regular Rate, Rhythm, No Edema, No Gallop, No JVD, No Murmur, No Rub Peripheral Pulses: 2+: Radial (L), Radial (R) GI/Abdominal: Normal Bowel Sounds, Soft, Non-Tender, No Organomegaly, No Distention, No Abnormal Bruit, No Mass Back Exam: Normal Inspection, Full Range of Motion Extremities: Normal Inspection, Normal Range of Motion, Non-Tender, No Pedal Prateek ma, Normal Capillary Refill Neurological: Alert, Oriented, CN II-XII Intact, Normal Cognition, No Motor/Sensory Deficits Psychiatric: Normal Affect, Normal Mood Skin Exam: Warm, Dry, Intact, Normal Color, No Rash #1 Interpretation EKG Date: 07/24/21 Time: 20:50 Rhythm: NSR [place]: Normal P-Wave: Present QRS: Normal ST-T: Normal QT: Normal (Normal sinus rhythm no acute ST elevation or depression noted no other acute findings noted) Course - Vital Signs Text/Narrative:: CBC BMP troponin EKG aspirin chest x-ray CBC BMP within normal limits troponin 5 EKG normal sinus rhythm Chest x-ray no acute finding noted Patient recheck states she feels better she does not want any further work-up and only wants to go to work states she has an appointment with her primary care provider Sunday but states will try to get it moved up in the morning or if an ything changes she will return here to the emergency room I explained to the patient the risk factors in regards to chest pain and her family history that she needed further work-up and at this time does not want any more lab work states she will get seen about outpatient Last Recorded V/S: Last Vital Signs Temp 36.2 C 07/24/21 20:46 Pulse 92 07/24/21 20:46 Resp 16 07/24/21 20:46 BP 124/85 07/24/21 20:46 Pulse Ox 98 07/24/21 20:46 - Orders/Labs/Meds Orders: Active Orders 24 hr Category Date Time Status Chest 1V Frontal [CR] Stat Exams 07/24/21 21:45 Ordered Labs: Laboratory Tests 07/24/21 07/24/21 Range/Units 21:39 21:39 WBC 12.2 H (4.0-10.0) x10^3/uL RBC 4.37 (4.00-5.50) x10^6/uL Hgb 14.4 (12.0-16.0) g/dL Hct 42.3 (33.0-47.0) % MCV 96.8 H (78.0-93.0) fL MCH 33.0 H (26.0-32.0) pg MCHC 34.0 (32.0-36.0) g/dL RDW Coeff of Delfino 14.2 (10.0-15.0) % Plt Count 232 (130-400) x10^3/uL Immature Gran % (Auto) 0.10 (0.00-0.43) % Neut % (Auto) 85.4 H (50.0-80.0) % Lymph % (Auto) 7.4 L (25.0-50.0) % Ransom % (Auto) 6.7 (2.0-11.0) % Eos % (Auto) 0.2 (0.0-4.0) % Baso % (Auto) 0.2 (0.2-1.2) % Neut # (Auto) 10.4 H (1.8-7.7) x10^3/uL Lymph # (Auto) 0.9 L (1.0-4.8) x10^3/uL Ransom # (Auto) 0.8 (0.0-0.8) x10^3/uL Eos # (Auto) 0.0 (0.0-0.5) x10^3/uL Baso # (Auto) 0.0 (0.0-0.2) x10^3/uL Immature Gran # (Auto) 0.01 (0.00-0.07) x10^3/uL Sodium 140 (136-145) mmol/L Potassium 4.1 (3.5-5.1) mmol/L Chloride 104 (98-107) mmol/L Carbon Dioxide 28 (21-32) mmol/L Anion Gap 12.1 (5-15) mmol/L BUN 12 (7-18) mg/dL Creatinine 0.7 (0.55-1.02) mg/dL Est Cr Clr Drug Dosing 91.27 mL/min Estimated GFR (MDRD) > 60 Glucose 103 H (70-99) mg/dL Calcium 9.1 (8.5-10.1) mg/dL Troponin I High Sens 5 (<=51) ng/L Meds: Medications Discontinued Medications Generic Name Dose Route Start Last Admin Trade Name Griffinq PRN Reason Stop Dose Admin Morphine Sulfate 2 mg 07/24/21 21:34 07/24/21 21:40 Morphine 2 Mg/Ml Syringe IVPUSH 07/24/21 21:35 2 mg ONETIME ONE Administration Orphenadrine Citrate 60 mg 07/24/21 21:24 Orphenadrine 60 Mg/2 Ml Inj IM 07/24/21 21:25 ONETIME ONE Orphenadrine Citrate 30 mg 07/24/21 22:40 07/24/21 22:43 Orphenadrine 60 Mg/2 Ml Inj IM 07/24/21 22:41 30 mg ONETIME ONE Administration Departure - Departure Time of Disposition: 23:00 Disposition: Home, Self-Care 01 Reason for Transfer *Q: Other (no STEMI) Condition: Good Clinical Impression: Chest pain Instructions: Nonspecific Chest Pain, Adult, [id number] Referrals: Olivia Butler, [Primary Care Provider] - Forms: ED Department Discharge Additional Instructions: Follow-up with your primary care provider in the next 24 hours Return here to the emergency room if anything changes or gets worse Sepsis Event Note (ED) - Evaluation Sepsis Screening Result: No Definite Risk - Focused Exam Vital Signs: Vital Signs Temp Pulse Resp BP Pulse Ox 07/24/21 20:46 36.2 C 92 16 124/85 98 - Problem List & Annotations (1) Chest pain SNOMED Code(s): 27006007 Code(s): R07.9 - CHEST PAIN, UNSPECIFIED Status: Acute Current Visit: No - My Orders Last 24 Hours: My Active Orders 07/24/21 21:45 Chest 1V Frontal [CR] Stat - Assessment/Plan Last 24 Hours: My Active Orders 07/24/21 21:45 Chest 1V Frontal [CR] Stat
[2021-07-24] MEDS ORDERED: Morphine 2 MG/ML SYRINGE IVPUSH ONE (21:34)
[2021-07-24 22:07] LABS: ANION GAP 12.1 mmol/L (5-15); CHLORIDE,CL 104 mmol/L (98-107); SODIUM,NA 140 mmol/L (136-145)
[2021-07-25 05:53] VITALS: BP 117/79
--- NOTE | 2021-07-25 08:00 | CR ---
[id number] RAD/RAD Chest PA or AP 1V EXAM: RAD Chest PA or AP 1V INDICATION: CHEST PAIN COMPARISON: February 09, 2021. DISCUSSION/IMPRESSION: Cardiomediastinal silhouette is normal in size and contour. Bilateral symmetric lung hyperinflation suggesting underlying COPD. Negative for pneumonia. No pleural effusion. Feliberto Gore MD 07/25/21 0758 Thank you for allowing us to participate in the care of your patient.
== END 2021-07-24 23:06 | disposition home or self-care (01) ==
LOC: VM.ED 20:46
DX: R07.2 Precordial pain (principal); E78.00 Pure hypercholesterolemia, unspecified; K21.9 Gastro-esophageal reflux disease without esophagitis; E03.9 Hypothyroidism, unspecified; Z79.899 Other long term (current) drug therapy; Z88.8 Allergy status to other drugs, medicaments and biological substances
CPT/HCPCS: 71045; 80048; 84484; 85025; 93005; 96372; 96374; 99285; A9270; J2270; J2360; 93010; 99284